=== PATIENT | female | born 1960 | race Caucasian/White ===

== ENCOUNTER 2017-03-18 17:28 | Emergency (ER) | payer OTHER ==
[~2017-03-18] VITALS: Ht 157.5 cm; Wt 58.5 kg
[~2017-03-18 17:28] MED LIST: ABCC1C PO; ACET500T98 PO; AUG875 PO; CEPH-443 PO; DOCU240C55 PO; FAMO-96 PO; FLUT9.9S NASAL; HYDR-906 PO; IBUP200C PO; MECL12.574 PO; MUPI22OI2 TOP; NAPR-260 PO; OMEP20CA16 PO; TRAM50TA2 PO; UDROBDM PO
[2017-03-18 17:31] VITALS: Ht 157.5 cm; Wt 58.5 kg
--- NOTE | 2017-03-18 18:15 | ERD ---
ER Documentation Chief Complaint Date/Time DATE: 03/18/17 TIME: 18:08 Chief Complaint right eye pain since 03/03/17 HPI This pleasant 56-year-old female presents to emergency department for complaint of pain behind right eye radiating down neck and behind the ear. History of bilateral infection x 2 weeks pt treated shirt hemmer with with Ciloxan gtt, erythromycin oint, tromodol gtts and oral keflex. pt has a lid scrub, states that she is taking all medication as prescribed w/o improvement of symptoms . Patient denies change in vision or unilateral weakness, denies change in behavior or alteration in thinking. Patient denies speech difficulties, difficulties with chewing or swallowing. ROS All systems reviewed and are negative except as per history of present illness. Medications Home Meds Active Scripts Gabapentin* (Neurontin*) 100 Mg Capsule, 100 MG PO TID, #90 CAP Prov:BRYANT,JAYLEN 03/18/17 Famotidine* (Pepcid*) 20 Mg Tablet, 20 MG PO BID for 10 Days, TAB Prov:ZION PILLAI PA-C 07/05/16 Naproxen* (Naprosyn*) 500 Mg Tablet, 500 MG PO BID Y for PAIN AND/OR INFLAMMATION, #30 TAB Prov:ZION PILLAI PA-C 07/05/16 Meclizine Hcl* (Antivert*) 12.5 Mg Tab, 12.5 MG PO Q6H Y for DIZZINESS, #20 TAB Prov:ZION PILLAIC 07/05/16 Hydrocodone/Acetaminophen ([place] 5-325 Tablet) 1 Each Tablet, 1 TAB PO Q6H Y for PAIN, #10 TAB Prov:ZION PILLAIC 07/05/16 Cephalexin* (Keflex*) 500 Mg Capsule, 500 MG PO QID for 7 Days, CAP Prov:LILIYAANA GOVEA 12/01/15 Mupirocin* (Bactroban*) 2% -22 Gram Oint...g., 1 APPLIC TOP BID for 7 Days, EA Prov:ANA LOVELL 12/01/15 Guaifenesin-Dextromethorphan* (Robitussin* DM) 100MG/10MG/5ML Syrup, 10 ML PO Q6H Y for COUGH, #240 ML 0 Refills Prov:BING PICKERING PA-C 08/18/15 Fluticasone Propionate (Flonase Allergy Relief) 9.9 Ml [place].susp, 1 SPRAY NASAL BID, #1 BOTTLE 0 Refills TO EACH NOSTRIL Prov:BING PICKERING PA-C 08/18/15 Ibuprofen* (Ibuprofen*) 200 Mg Capsule, 200 MG PO Q6, #30 CAP 0 Refills Prov:BING PICKERING PA-C 08/18/15 Acetaminophen (Tylenol) 500 Mg Tab, 500 MG PO Q6, #30 TAB 0 Refills Prov:BING PICKERING PA-C 08/18/15 Hctxikiptjmzj-Xmvqqychoe-Khtgdgsy-Codeine* (Fioricet w/Codeine*) [id number] -30MG Cap, 1 CAP PO Q4H Y for PAIN LEVEL 1-5, #20 CAP Prov:KRISS CHAUDHARI PA-C 06/01/15 Tramadol HCl (Tramadol HCl) 50 Mg Tab, 50 MG PO Q4 Y for PAIN, #10 TAB Prov:KRISS CHAUDHARI PA-C 01/23/15 Amoxicillin-Clavulanate K* (Augmentin*) 875 Mg Tab, 875 MG PO BID for 7 Days, TAB Prov:KRISS CHAUDHARI PA-C 01/23/15 Reported Medications Docusate Calcium* (Stool Softener*) 240 Mg Capsule, 240 MG PO DAILY, CAP 11/19/14 Omeprazole* (Omeprazole*) 20 Mg Capsule.dr, 20 MG PO AC BREAKFAST, CAP 11/19/14 Allergies Allergies: Coded Allergies: No Known Allergy (Unverified , 01/23/15) PMhx/Soc History of Surgery: Yes (BREAST AUGMENTATION) Anesthesia Reaction: No Hx Neurological Disorder: No Hx Respiratory Disorders: No Hx Cardiac Disorders: No Hx Psychiatric Problems: No Hx Miscellaneous Medical Probl: No Hx Alcohol Use: No Hx Substance Use: No Hx Tobacco Use: No Smoking Status: Never smoker Physical Exam Vitals Vital Signs Date Time Temp Pulse Resp B/P Pulse Ox O2 Delivery O2 Flow Rate FiO2 03/18/17 17:31 98.4 78 20 134/77 99 Vitals stable, triage notes reviewed Physical Exam Const: Well-nourished, well-appearing, well-hydrated no acute distress Head: Atraumatic Eyes: Normal Conjunctiva, clear, without injection, or edema, positive EOMI, no nystagmus, PERRLA ENT: Normal External Ears, Nose and Mouth. Neck: Full range of motion.. Resp: Respirations even and unlabored, no respiratory Cardio: Abd: Skin: Ext: Neur: Awake and alert Psych: Normal Mood and Affect Results 24 hrs Current Medications Medications (Trade) Dose Ordered Sig/Macario Route PRN Reason Start Time Stop Time Status Last Admin Dose Admin Gabapentin (Neurontin) 200 mg ONCE ONCE PO 03/18/17 21:00 03/18/17 21:01 Procedures/MDM PROCEDURE: CT Brain without. CLINICAL INDICATION: Right eye pain and infection. TECHNIQUE: A CT of the brain was performed on multidetector high-resolution CT scanner utilizing axial sections from the skull base through the vertex without contrast. The scan was reviewed in soft tissue brain and high frequency resolution bone algorithm windows. Images were reviewed on a high- resolution PACS workstation. One or more the following does reduction techniques were utilized: Automated exposure control, adjustment of the mA/ or kV according to patient's size, or use of iterative reconstruction technique. The exam CTDI = 44 point and mGy and the DLP = 720.23 mGy-cm. COMPARISON: None available. FINDINGS: The ventricles and sulci are age-appropriate. There is no intracranial hemorrhage, mass effect or midline shift. No abnormal intra-axial or extra- axial fluid collections are seen. The vee/white matter differentiation is preserved. No acute skull abnormality is noted. The visualized paranasal sinuses are essentially clear. IMPRESSION: 1. No acute intracranial hemorrhage, transcortical infarction or mass effect. If clinical concern for ocular infection persists consider orbit MRI with contrast. Electronically viewed and signed by .Stacia Cowart MD, MD on 03/18/2017 19: 03 This 56-year-old female presents to emergency department for evaluation of pain behind right eye radiating to the side of her face and down her neck. Patient has been treated and seen by ophthalmology and is undergoing a extensive antibiotic regime at this time, patient is on siloxane, erythromycin, tramadol ophthalmic solution and ointment, oral Keflex and using a lid scrub for a eye infection which she does not know the name. Patient reports that she has been going back to ophthalmology every 2 weeks and has an appointment next week. Patient is here because she has not had this type of pain before. Pain is reproducible to tap suggestive of nerve pain, CAT scan of head will be obtained to rule out any mass. CAT scan is finding as outlined above no acute intracranial hemorrhage, transcortical infarct or mass-effect. Patient is treated in emergency department with 200 mg of Neurontin. Will be discharged home on 150 mg Neurontin 3 times daily follow-up with primary care physician and ophthalmology as planned. Return to emergency department for worsening of pain or if pain fails to improve as expected. Return to emergency department for change in vision, nausea or vomiting. I feel the patient is stable for discharge at this time with outpatient management as discussed above. I have discussed results, examination findings, the treatment plan with the patient and family present prior to discharge. Indications for emergent reevaluation, side effects of medication were also discussed. All questions were answered. Patient verbalizes understanding and agrees with plan of care. This case was discussed with supervising physician Departure Diagnosis: Primary Impression: Pain in eye Laterality: right Qualified Code: H57.11 - Pain in eye, right Condition: Good Patient Instructions: Understanding Red Eye: Causes Additional Instructions: Thank you for for coming to [facility] for your care today. Please ask your nurse or provider if you have questions about your care today and do not leave until all your questions have been answered. Please use any medications given as directed and follow-up with your doctor (or the doctor you were referred to) in the next 2-3 days. If you do not have a primary care doctor you may follow up at the [facility] (listed below). You may also use motrin and tylenol as needed for fever and/or pain unless instructed otherwise by your provider or nurse. Indications for more urgent follow-up have been discussed, but you may return to the Emergency Department at ANY time for any worrisome or worsening symptoms. If you have abdominal pain, please know that no test or exam you received is perfect and you should follow up within 8 hours for continued pain. If you had any imaging studies today, such as an X-Ray or CT Scan, these studies will be reviewed later by a radiologist. You will be called if there are important findings that were not identified today, so make sure the contact information you provided at registration is correct. If you received any narcotic pain control medicine today, such as Vicodin, Morphine or Dilaudid, your coordination and judgment may be affected for a number of hours. Please do not drive or operate heavy machinery, and you may want someone to assist you at home. If you were given a prescription for narcotic medication, be aware that it is very addictive- use sparingly and only if necessary. JAYLEN HURTADO Mar 18, 2017 18:15
--- NOTE | 2017-03-18 19:03 | RADRPT ---
PROCEDURE: CT Brain without. CLINICAL INDICATION: Right eye pain and infection. TECHNIQUE: A CT of the brain was performed on multidetector high-resolution CT scanner utilizing a xial sections from the skull base through the vertex without contrast. The scan was reviewed in sof t tissue brain and high frequency resolution bone algorithm windows. Images were reviewed on a high -resolution PACS workstation. One or more the following does reduction techniques were utilized: Aut omated exposure control, adjustment of the mA/ or kV according to patient's size, or use of iterativ e reconstruction technique. The exam CTDI = 44 point and mGy and the DLP = 720.23 mGy-cm. COMPARISON: None available. FINDINGS: The ventricles and sulci are age-appropriate. There is no intracranial hemorrhage, mass effect or mi dline shift. No abnormal intra-axial or extra-axial fluid collections are seen. The vee/white yesi er differentiation is preserved. No acute skull abnormality is noted. The visualized paranasal sinus es are essentially clear. IMPRESSION: 1. No acute intracranial hemorrhage, transcortical infarction or mass effect. If clinical concern f or ocular infection persists consider orbit MRI with contrast. RPTAT: HH .Stacia Cowart MD, MD Date Time Electronically viewed and signed by .Stacia Cowart MD, MD on 03/18/2017 19:03 .N/
[2017-03-18] MEDS ORDERED: GABA100C PO (20:48)
[2017-03-18] MEDS ORDERED: GABAPENTIN 100 MG CAP PO ONE (21:00)
[2017-03-18 21:50] VITALS: BP 139/68; PULSE 77; RESP 20; TEMP 98.3
== END 2017-03-18 21:52 | disposition home or self-care (01) ==
LOC: FTE 17:28
DX: H57.11 Ocular pain, right eye (principal); R51 Headache
CPT/HCPCS: 70450; Z7502; Z7610

== ENCOUNTER 2017-04-14 15:03 | Inpatient (IN) | payer OTHER ==
[~2017-04-14] VITALS: Ht 154.9 cm; Wt 61.0 kg
[~2017-04-14 15:03] MED LIST changes: +GABA100C PO
[2017-04-14] MEDS ORDERED: KETOROLAC 15 MG INJ IV STA (16:32)
[2017-04-14 16:56] LABS: BASOPHILS % 0.5 % (0.0-2.0); EOSINOPHILS % 0.5 % (0.0-7.0); HEMATOCRIT 37.7 % (37.0-47.0); HEMOGLOBIN 12.3 g/dl (12.0-16.0); LYMPHOCYTES % 50.3 % (15.0-51.0); MEAN CORPUSCULAR HEMOGLOBIN 28.4 pg (29.0-33.0); MEAN CORPUSCULAR HGB CONC 32.6 g/dl (32.0-37.0); MEAN CORPUSCULAR VOLUME 87.1 fl (82.0-101.0); MEAN PLATELET VOLUME 9.5 fl (7.4-10.4); MONOCYTE # 0.3 10^3/ul (0.3-0.9); NEUTROPHILS % 43.5 % (39.0-77.0); PLATELET COUNT 312 10^3/UL (140-415); RED BLOOD COUNT 4.33 10^6/ul (4.20-5.40); RED CELL DISTRIBUTION WIDTH 12.8 % (11.5-14.5)
[2017-04-14] MEDS ORDERED: PROCHLORPERAZINE 10 MG INJ IV ONE (17:00)
[2017-04-14] MEDS ORDERED: DIPHENHYDRAMINE 50 MG INJ IV ONE (17:00)
[2017-04-14 17:23] LABS: ALBUMIN 4.8 g/dl (3.3-4.9); ALBUMIN/GLOBULIN RATIO 0.87; BILIRUBIN,INDIRECT 0.2 mg/dl (0-1.1); BILIRUBIN,TOTAL 0.2 mg/dl (0.2-1.3); C-REACTIVE PROTEIN 0.5 mg/dl (0.0-0.9); CALCIUM 9.9 mg/dl (8.4-10.2); CREATININE 0.72 mg/dl (0.44-1.00); POTASSIUM 4.1 mmol/L (3.5-5.1); TOTAL PROTEIN 10.3 g/dl (6.1-8.1)
--- NOTE | 2017-04-14 18:09 | ERA ---
ER Documentation Chief Complaint Date/Time DATE: 04/14/17 TIME: 18:04 Chief Complaint sent by clinic for suspected giant cell arteritis HPI This is a 56-year-old female with a past medical history of hypothyroidism, chronic gastritis, glaucoma who is presenting with a severe right-sided 10 out of 10 sharp pulsating headache for 2-3 weeks. She was evaluated as an outpatient previously and her ESR was found to be at 130. The patient has seen an cost analyst who reportedly was concerned about giant cell arteritis but advised against prednisone secondary to elevated intraocular pressure. She does have a rheumatology appointment scheduled for the end of April, but her symptoms have persisted and she came here for further evaluation. The patient endorses blurry vision and photophobia to the right eye. She has no nausea or vomiting. ROS All systems reviewed and are negative except as per history of present illness. Medications Home Meds Active Scripts Gabapentin* (Neurontin*) 100 Mg Capsule, 100 MG PO TID, #90 CAP Prov:BRYANT,JAYLEN 03/18/17 Reported Medications Neomycin-Polymyxn B-Gramicidin (Rjuxvkco-Gksb-Zzmi Eye Drop) 10 Ml Drops, 1 DROP BOTH EYES QHS, EA 04/14/17 Ketorolac Tromethamine Oph (Ketorolac Tromethamine Oph) 0.5%-5 Ml Opht Drops, 1 DROP BOTH EYES QID, EA 04/14/17 Ciprofloxacin Opht* (Ciloxan*) 0.3%-3.5 Opht Oint, 1 APPLIC BOTH EYES QID, EA 04/14/17 Ofloxacin* (Ocuflox*) 0.3%-5 Ml Ophth Drops, 1 DROP BOTH EYES QID, BOTTLE 04/14/17 Erythromycin (Erythromycin Opth) 3.5 Gm Oint..gm., 1 APPLIC BOTH EYES BID, #1 TUB 04/14/17 Tramadol HCl/Acetaminophen (Ultracet Tablet) 1 Each Tablet, 1 EACH PO BID, TAB TAKE 37.5-325 MG BID 04/14/17 Discontinued Reported Medications Docusate Calcium* (Stool Softener*) 240 Mg Capsule, 240 MG PO DAILY, CAP 11/19/14 Omeprazole* (Omeprazole*) 20 Mg Capsule.dr, 20 MG PO AC BREAKFAST, CAP 11/19/14 Discontinued Scripts Famotidine* (Pepcid*) 20 Mg Tablet, 20 MG PO BID for 10 Days, TAB Prov:ZION PILLAI PA-C 07/05/16 Naproxen* (Naprosyn*) 500 Mg Tablet, 500 MG PO BID Y for PAIN AND/OR INFLAMMATION, #30 TAB Prov:ZION PILLAI PA-C 07/05/16 Meclizine Hcl* (Antivert*) 12.5 Mg Tab, 12.5 MG PO Q6H Y for DIZZINESS, #20 TAB Prov:ZION PILLAI PA-C 07/05/16 Hydrocodone/Acetaminophen ([place] 5-325 Tablet) 1 Each Tablet, 1 TAB PO Q6H Y for PAIN, #10 TAB Prov:ZION PILLAI PA-C 07/05/16 Cephalexin* (Keflex*) 500 Mg Capsule, 500 MG PO QID for 7 Days, CAP Prov:ANA LOVELL 12/01/15 Mupirocin* (Bactroban*) 2% -22 Gram Oint...g., 1 APPLIC TOP BID for 7 Days, EA Prov:ANA LOVELL 12/01/15 Guaifenesin-Dextromethorphan* (Robitussin* DM) 100MG/10MG/5ML Syrup, 10 ML PO Q6H Y for COUGH, #240 ML 0 Refills Prov:BING PICKERING PA-C 08/18/15 Fluticasone Propionate (Flonase Allergy Relief) 9.9 Ml [place].susp, 1 SPRAY NASAL BID, #1 BOTTLE 0 Refills TO EACH NOSTRIL Prov:BING PICKERING PA-C 08/18/15 Ibuprofen* (Ibuprofen*) 200 Mg Capsule, 200 MG PO Q6, #30 CAP 0 Refills Prov:BING PICKERING PA-C 08/18/15 Acetaminophen (Tylenol) 500 Mg Tab, 500 MG PO Q6, #30 TAB 0 Refills Prov:BING PICKERING PA-C 08/18/15 Mvznrmeadzmwx-Lxuopmtsym-Yjkcrzrl-Codeine* (Fioricet w/Codeine*) [id number] -30MG Cap, 1 CAP PO Q4H Y for PAIN LEVEL 1-5, #20 CAP Prov:KRISS CHAUDHARI PA-C 10/16/15 Tramadol HCl (Tramadol HCl) 50 Mg Tab, 50 MG PO Q4 Y for PAIN, #10 TAB Prov:KRISS CHAUDHARI PA-C 01/23/15 Amoxicillin-Clavulanate K* (Augmentin*) 875 Mg Tab, 875 MG PO BID for 7 Days, TAB Prov:KRISS CHAUDHARI PA-C 01/23/15 Allergies Allergies: Coded Allergies: No Known Allergy (Unverified , 04/14/17) PMhx/Soc History of Surgery: Yes (BREAST AUGMENTATION) Anesthesia Reaction: No Hx Neurological Disorder: No Hx Respiratory Disorders: No Hx Cardiac Disorders: No Hx Psychiatric Problems: No Hx Miscellaneous Medical Probl: Yes (hypothyroidism, glaucoma, gastritis) Hx Alcohol Use: No Hx Substance Use: No Hx Tobacco Use: No Smoking Status: Never smoker FmHx Family History: No diabetes Physical Exam Vitals Vital Signs Date Time Temp Pulse Resp B/P Pulse Ox O2 Delivery O2 Flow Rate FiO2 04/14/17 15:10 98.4 72 20 125/78 99 Physical Exam Const: NAD Head: Atraumatic, pulsatility to right temporal artery Eyes: Normal Conjunctiva, Visual Acuity R 20:50, L 20:70, B 20:40 ENT: Normal External Ears, Nose and Mouth. Neck: Full range of motion. ~ No meningismus. Resp: Clear to auscultation bilaterally Cardio: Regular rate and rhythm, no murmurs Abd: Soft, non tender, non distended. Normal bowel sounds Skin: No petechiae or rashes Back: No midline or flank tenderness Ext: No cyanosis, or edema Neur: Awake and alert Psych: Normal Mood and Affect Result Diagram: 04/14/17 1645 04/14/17 1645 Results 24 hrs Laboratory Tests Test 04/14/17 16:45 White Blood Count 6.010^3/ul Red Blood Count 4.3310^6/ul Hemoglobin 12.3g/dl Hematocrit 37.7% Mean Corpuscular Volume 87.1fl Mean Corpuscular Hemoglobin 28.4pg Mean Corpuscular Hemoglobin Concent 32.6g/dl Red Cell Distribution Width 12.8% Platelet Count 09077^3/UL Mean Platelet Volume 9.5fl Neutrophils % 43.5% Lymphocytes % 50.3% Monocytes % 5.0% Eosinophils % 0.5% Basophils % 0.5% Nucleated Red Blood Cells % 0.0/100WBC Neutrophils # (Manual) 2.610^3/ul Lymphocytes # 3.010^3/ul Monocytes # 0.310^3/ul Eosinophils # 0.010^3/ul Basophils # 0.010^3/ul Nucleated Red Blood Cells # 0.010^3/ul Erythrocyte Sedimentation Rate 115mm/Hr Sodium Level 147mmol/L Potassium Level 4.1mmol/L Chloride Level 102mmol/L Carbon Dioxide Level 30mmol/L Anion Gap 19 Blood Urea Nitrogen 17mg/dl Creatinine 0.72mg/dl Glucose Level 91mg/dl Calcium Level 9.9mg/dl Total Bilirubin 0.2mg/dl Direct Bilirubin 0.00mg/dl Indirect Bilirubin 0.2mg/dl Aspartate Amino Transf (AST/SGOT) 30IU/L Alanine Aminotransferase (ALT/SGPT) 25IU/L Alkaline Phosphatase 98IU/L C-Reactive Protein 0.5mg/dl Total Protein 10.3g/dl Albumin 4.8g/dl Globulin 5.50g/dl Albumin/Globulin Ratio 0.87 Current Medications Medications (Trade) Dose Ordered Sig/Macario Route PRN Reason Start Time Stop Time Status Last Admin Dose Admin Ketorolac Tromethamine (Toradol) 15 mg ONCE STAT IV 04/14/17 16:32 04/14/17 16:37 DC 04/14/17 16:55 Diphenhydramine HCl (Benadryl) 25 mg ONCE ONCE IV 04/14/17 17:00 04/14/17 17:01 DC 04/14/17 16:56 Prochlorperazine (Compazine Inj) 10 mg ONCE ONCE IV 04/14/17 17:00 04/14/17 17:01 DC 04/14/17 17:19 Ondansetron HCl (Zofran Inj) 4 mg BRIDGE ORDER PRN IV NAUSEA AND/OR VOMITING 04/14/17 21:00 04/15/17 20:59 Acetaminophen (Tylenol Tab) 650 mg ER BRIDGE PRN PO MILD PAIN/FEVER 04/14/17 21:00 04/15/17 20:59 Procedures/MDM The patient was sent to the ER to evaluate for Temporal Arteritis. Her CBC and CMP were unremarkable. Her ESR was elevated at 115. Her CRP was normal. She was given a migraine cocktail with improvement of her pain but not resolution. Her protracted history with resolution in one eye after laser surgery for glaucoma make me less suspicious for temporal arteritis. However, the ESR is concerning. She will be admitted to the ER for further Evaluation and management. A CT was performed that likewise did not reveal any emergent etiology. The radiologist read the scan as follows: FINDINGS: The ventricles and sulci are age-appropriate. There is no intracranial hemorrhage, mass effect or midline shift. No abnormal intra-axial or extra-axial fluid collections are seen. The vee/white matter differentiation is preserved. No acute skull abnormality is noted. The visualized paranasal sinuses are essentially clear. IMPRESSION: No acute intracranial hemorrhage, transcortical infarction or mass effect. If clinical concern for ocular infection persists consider orbit MRI with contrast. .Stacia Cowart MD, MD Date Time Electronically viewed and signed by .Stacia Cowart MD, MD on 03/18/2017 19: 03 I don't not have concern for ocular infection. Case was discussed with Dr. Hardwick at 1955 on 04/14/2017 Departure Diagnosis: Primary Impression: BELLA (headache) Additional Impressions: Blurred vision, right eye ESR raised Condition: JENNA Nash MD Apr 14, 2017 18:09
[2017-04-14] MEDS ORDERED: TRAM1TAB51 PO (18:50)
[2017-04-14] MEDS ORDERED: ERYT1OIN6 BOTH EYES (18:52)
[2017-04-14] MEDS ORDERED: CPR3OO3.5 BOTH EYES (18:54)
[2017-04-14] MEDS ORDERED: OFLO5DRO46 BOTH EYES (18:54)
[2017-04-14] MEDS ORDERED: KETO5DRO21 BOTH EYES (18:55)
[2017-04-14] MEDS ORDERED: [UNRECOGNIZED DRUG - CODE] BOTH EYES (18:58)
[2017-04-14 20:18] VITALS: BP 146/78; RESP 18
[2017-04-14] MEDS ORDERED: ONDANSETRON 4 MG INJ IV PRN (21:00)
[2017-04-14] MEDS ORDERED: ACETAMINOPHEN 325 MG TAB PO PRN (21:00)
[2017-04-14 21:12] VITALS: PULSE 78; TEMP 98.4
[2017-04-14 22:00] VITALS: Ht 154.9 cm; Wt 61.0 kg
[2017-04-14] MEDS ORDERED: morphine 4 MG/ML VIAL IV PRN (22:00)
[2017-04-14] MEDS ORDERED: ZOLPIDEM 5 MG TAB PO PRN (22:00)
[2017-04-15 02:10] VITALS: BP 112/63; RESP 19
[2017-04-15 05:30] LABS: BASOPHILS % 0.3 % (0.0-2.0); EOSINOPHILS # 0.1 10^3/ul (0.0-0.5); EOSINOPHILS % 1.4 % (0.0-7.0); HEMOGLOBIN 11.1 g/dl (12.0-16.0); LYMPHOCYTES # 3.4 10^3/ul (0.8-2.9); LYMPHOCYTES % 51.7 % (15.0-51.0); MEAN CORPUSCULAR HEMOGLOBIN 27.7 pg (29.0-33.0); MEAN CORPUSCULAR HGB CONC 31.7 g/dl (32.0-37.0); MEAN CORPUSCULAR VOLUME 87.3 fl (82.0-101.0); MEAN PLATELET VOLUME 10.2 fl (7.4-10.4); MONOCYTE # 0.4 10^3/ul (0.3-0.9); MONOCYTES % 5.8 % (0.0-11.0); NEUTROPHILS % 40.6 % (39.0-77.0); PLATELET COUNT 274 10^3/UL (140-415); RED BLOOD COUNT 4.01 10^6/ul (4.20-5.40); RED CELL DISTRIBUTION WIDTH 12.9 % (11.5-14.5); WHITE BLOOD COUNT 6.6 10^3/ul (4.8-10.8)
[2017-04-15 06:02] LABS: CALCIUM 9.2 mg/dl (8.4-10.2); CREATININE 0.76 mg/dl (0.44-1.00); MAGNESIUM 2.2 mg/dl (1.7-2.5); POTASSIUM 4.1 mmol/L (3.5-5.1)
[2017-04-15] MEDS: ACETAMINOPHEN 325 MG TAB PO PRN ×2 (07:33→14:35)
[2017-04-15] MEDS: HEPARIN 5,000 UNIT/0.5 ML VIAL SC SCH ×2 (08:17→21:10)
[2017-04-15 08:24] VITALS: BP 113/65; RESP 18
[2017-04-15] MEDS ORDERED: KETOROLAC TROMETHAMINE OPH BOTH EYES SCH (09:30)
--- NOTE | 2017-04-15 09:32 | HP ---
Date/Time of Note Date/Time of Note DATE: 04/15/17 TIME: 09:20 Assessment/Plan VTE Prophylaxis VTE Prophylaxis Intervention: LMWH Lines/Catheters IV [facility] Saline Lock Assessment/Plan Assessment/Plan 1. Headache and right eye pain -Given the persistent nature of her symptoms as well as elevated ESR, temporal arteritis should be high on the differential. Will find out how we go about obtaining a temporal artery biopsy. As noted in the HPI, patient has been evaluated by ophthalmology who recommended against steroid because of elevated intraocular pressure. -will provide pain medication as needed -will place a rheumatology consult 2. Hypothyroidism -Continue Synthroid 3. History of gastritis -PPI HPI/ROS Admit Date/Time Admit Date/Time Apr 14, 2017 at 20:43 Hx of Present Illness This is a 56-year-old female with a history of gastritis, hypothyroidism who presented to the emergency department complaining of a headache. Pain started about 6 weeks ago. Headache is mainly right sided with associated visual disturbance and photophobia. She also describes pain behind her right eye. About 5 or 6 weeks ago, she saw an mill beam fitter and has been treated with ophthalmic antibiotics for eye infections. Her symptoms however persisted. She was evaluated here in our ER at the beginning of this month. At that time CT of the head was negative for any acute processes. She denied fever, neck stiffness, facial droop, discharge from her eyes. She had an outpatient workup which showed an elevated ESR, which caused concern for temporal arteritis. Patient does have history of glaucoma and because of that ophthalmology recommended again is a steroid because of elevated intraocular pressure. She is scheduled to see a food and beverage service manager sometime next month. When she presented to the ER today, vitals were stable. ESR is 115. Except a sodium of 147, CBC and CMP were within acceptable range. . PMH/Family/Social Past Medical History Medical History: hypothyroid, other (Gastritis) Social History Alcohol Use: none Smoking Status: Never smoker Drug Use: none Exam/Review of Systems Vital Signs Vitals Vital Signs Date Time Temp Pulse Resp B/P Pulse Ox O2 Delivery O2 Flow Rate FiO2 04/15/17 08:24 98.0 67 18 113/65 98 Intake and Output 04/14/17 04/14/17 04/15/17 15:00 23:00 07:00 Intake Total 450 ml Balance 450 ml Exam Constitutional: other (Slightly uncomfortable due to pain) Head: atraumatic, normocephalic Eyes: EOMI, PERRL Respiratory: clear to auscultation, normal air movement Cardiovascular: nl pulses, regular rate and rhythm Gastrointestinal: non-tender, soft Extremities: normal pulses Labs Result Diagram: 04/15/17 0500 04/15/17 0500 Medications Medications Current Medications Morphine Sulfate (morphine) 3 mg Q4H PRN IV PAIN; Start 04/14/17 at 22:00 Zolpidem Tartrate (Ambien) 10 mg HS PRN PO INSOMNIA; Start 04/14/17 at 22:00 Heparin Sodium (Porcine) (Heparin (5000 Units/0.5 ml)) 5,000 unit BID SC Last administered on 04/15/17 08:17; Admin Dose 5,000 UNIT; Start 04/15/17 at 09:00 Acetaminophen (Tylenol Tab) 650 mg Q6H PRN PO PAIN AND OR ELEVATED TEMP Last administered on 04/15/17 07:33; Admin Dose 650 MG; Start 04/15/17 at 07:30 CHRISTIANNE CAMPBELL MD Apr 15, 2017 09:31 CHRISTIANNE CAMPBELL MD Apr 15, 2017 09:31
[2017-04-15] MEDS: ERYTHROMYCIN 1 GM OPH OINT BOTH EYES SCH ×2 (11:48→21:03)
[2017-04-15] MEDS: GABAPENTIN 100 MG CAP PO SCH ×2 (12:40→21:03)
[2017-04-15] MEDS ORDERED: CIPROFLOXACIN 0.3% 3.5 GM OPH OINT BOTH EYES SCH (13:00)
[2017-04-15] MEDS: KETOROLAC 0.5% BOTH EYES SCH ×3 (13:48→21:03)
[2017-04-15] MEDS: OPTHALMIC BOTH EYES SCH ×6 (13:48→21:03)
[2017-04-15] MEDS: OFLOXACIN 0.3% BOTH EYES SCH ×3 (14:35→21:03)
--- NOTE | 2017-04-15 14:44 | CONS ---
DATE OF ADMISSION: 04/14/2017 DATE OF CONSULTATION: 04/15/2017 RHEUMATOLOGY CONSULTATION REASON FOR CONSULTATION: Concern for temporal arteritis secondary to elevated ESR. HISTORY OF PRESENT ILLNESS: The patient is a 56-year-old female with a history of gastritis and hypothyroidism who came into the emergency department after being referred here by her primary care doctor with complaints of a headache. Now, per patient, she has actually had a headache for well over a year on and off, however, in the last 6-months it became worse, and it is a shooting pain that starts at her right temporal area and shoots posteriorly to her back. Occasionally, she will get it in the left temporal area. She says that she has had eye issues on and off at least for the past year. It started with tearing in her right eye, which she went to see an roving court reporter for, at first they thought it was an infection and they gave her antibiotics. Then they noticed that she actually has elevated pressures in both eyes. She was diagnosed with glaucoma and she had laser treatment in the left, she is scheduled for laser treatment in the right in the near future. She complained about the headaches to her roving court reporter and he felt that they were secondary to her glaucoma. She was also evaluated in the emergency room at the beginning of this month. At that time, a CT of the head was negative for any acute processes. She denies any fevers, neck stiffness, facial droop. She does have some eye discharge which is just clear increased tear production from her right eye. She denies any jaw claudication or any other vision changes, any double vision, there are really no vision changes other than just the tearing. No double vision, no blurry vision. As an outpatient, she had a workup that showed an elevated ESR. Currently, the ESR here is 115, which is definitely elevated. Per report, ophthalmology is concerned about steroids and does not want the patient to be placed on steroids because of the elevated intraocular pressure. She has a scheduled appointment with her language assistant, it appears, next month. Currently she denies chest pain, shortness of breath, nausea and vomiting, cough, diarrhea, constipation. She denies any arthritis, myalgias, no rash, no photosensitivity, no oral or nasal or vaginal ulcers. She denies Raynaud's phenomenon. PAST MEDICAL HISTORY: Hypothyroid and possible gastritis. SOCIAL HISTORY: No alcohol, never smoked, no drug use. FAMILY HISTORY: Father with prostate cancer. Mother with uterine cancer. No known autoimmune history. PAST SURGICAL HISTORY: Status post breast implants. MEDICATION: 1. She is on morphine p.r.n. 2. Ambien p.r.n. 3. Heparin subcu. 4. Tylenol p.r.n. PHYSICAL EXAMINATION: GENERAL APPEARANCE: Alert and oriented in no acute distress. Pleasant female. HEENT: Head normocephalic and atraumatic. Extraocular movements intact. Oropharynx is clear. Very slight tenderness to possible palpation in the right temporal region. LUNGS: Clear to auscultation bilaterally. HEART: S1 and S2. Regular rate and rhythm. ABDOMEN: Soft abdomen, nontender and nondistended, bowel sounds present. EXTREMITIES: Normal pulses, no clubbing, cyanosis or edema. MUSCULOSKELETAL: No synovitis, no joint effusion, no joint warmth. SKIN: No rashes. NEUROLOGIC: Cranial nerves 2-12 grossly intact. LABORATORY VALUES: Currently include white count 6.6, hemoglobin 11.1, hematocrit 35, platelet count 274. ESR, as I stated, is 115. Chemistry, sodium 147, potassium 4.1, chloride 104, bicarb 29, BUN 21, creatinine 0.76, alkaline phos 84. C-reactive protein is 0.5. AST 30, ALT 25. IMPRESSION AND PLAN: We have a 56-year-old female with history of hypothyroidism presenting with what appears to be rather chronic headaches for at least the past year and known glaucoma undergoing treatment with roving court reporter and found to have, amidst all of this, an elevated ESR. I personally feel that she is at low likelihood to have temporal arteritis given her presentation and her age. Her chronicity of symptoms, more than anything, goes against it. However, given the elevated ESR and the fact that we do not have any other explanation for this at this time, I would go ahead and recommend a temporal artery biopsy of the right side at this point in time. I will hold off on starting prednisone or corticosteroids as per the wishes of her roving court reporter to not make her glaucoma worse as I feel that she is in no acute danger at this point in time. Should this change, her headaches worse, visual changes worsen, we may re- evaluate the situation. Also it should be noted that even with a temporal artery biopsy, if it is negative it does not necessarily guarantee that she does not have temporal arteritis as this disease can have skip lesions and we might be unlucky enough to get a biopsy of an area that is not involved. However, even knowing this, at this point I still do not want to start the steroids because I think we would do more harm to her eyes with her glaucoma than help them, given the low probability of temporal arteritis. I would like to thank the primary care doctors for having me participate in this patient's care. Please do not hesitate to call with further questions or concerns. Dictated By: Rachid Paredes MD /carine/jo-ann /Document#: [id number]
[2017-04-15 14:47] VITALS: BP 115/67; RESP 18
--- NOTE | 2017-04-15 16:52 | PN ---
Date/Time of Note Date/Time of Note DATE: 04/15/17 TIME: 16:49 Assessment/Plan VTE Prophylaxis VTE Prophylaxis Intervention: heparin Lines/Catheters IV Catheter Type (from Nrs): Saline Lock Assessment/Plan Chief Complaint/Hosp Course Subjective: Events noted. Appreciate application support consultant assistance Objective: Vital signs stable no fever PE No pallor adenopathy. Not much temporal tenderness. eomi. Regular Clear Benign No edema Assessment / plan 1. Headache/ vision changes. Stable, consider temporal artery biopsy. Hold steroids due to glaucoma at the assistance of her gambling broker. 2. Chronic glaucoma. Follow-up with ophthalmology as soon as possible. 3. Chronic hypothyroidism 4. Anemia Problems: Exam/Review of Systems Vital Signs Vitals Vital Signs Date Time Temp Pulse Resp B/P Pulse Ox O2 Delivery O2 Flow Rate FiO2 04/15/17 14:47 98.0 68 18 115/67 97 Intake and Output 04/14/17 04/14/17 04/15/17 15:00 23:00 07:00 Intake Total 450 ml Balance 450 ml Results Result Diagram: 04/15/17 0500 04/15/17 0500 Results 24 hrs Laboratory Tests Test 04/15/17 05:00 White Blood Count 6.6 Red Blood Count 4.01 L Hemoglobin 11.1 L Hematocrit 35.0 L Mean Corpuscular Volume 87.3 Mean Corpuscular Hemoglobin 27.7 L Mean Corpuscular Hemoglobin Concent 31.7 L Red Cell Distribution Width 12.9 Platelet Count 274 Mean Platelet Volume 10.2 Neutrophils % 40.6 Lymphocytes % 51.7 H Monocytes % 5.8 Eosinophils % 1.4 Basophils % 0.3 Nucleated Red Blood Cells % 0.0 Neutrophils # (Manual) 2.7 Lymphocytes # 3.4 H Monocytes # 0.4 Eosinophils # 0.1 Basophils # 0.0 Nucleated Red Blood Cells # 0.0 Sodium Level 147 H Potassium Level 4.1 Chloride Level 104 Carbon Dioxide Level 29 Anion Gap 18 H Blood Urea Nitrogen 21 H Creatinine 0.76 Glucose Level 94 Calcium Level 9.2 Magnesium Level 2.2 Alkaline Phosphatase 84 Medications Medications Current Medications Morphine Sulfate (morphine) 3 mg Q4H PRN IV PAIN; Start 04/14/17 at 22:00 Zolpidem Tartrate (Ambien) 10 mg HS PRN PO INSOMNIA; Start 04/14/17 at 22:00 Heparin Sodium (Porcine) (Heparin (5000 Units/0.5 ml)) 5,000 unit BID SC Last administered on 04/15/17 08:17; Admin Dose 5,000 UNIT; Start 04/15/17 at 09:00 Acetaminophen (Tylenol Tab) 650 mg Q6H PRN PO PAIN AND OR ELEVATED TEMP Last administered on 04/15/17 14:35; Admin Dose 650 MG; Start 04/15/17 at 07:30 Erythromycin (Erythromycin Oph Oint) 1 applic BID BOTH EYES Last administered on 04/15/17 11:48; Admin Dose 1 APPLIC; Start 04/15/17 at 11:00 Gabapentin (Neurontin) 100 mg TID PO Last administered on 04/15/17 12:40; Admin Dose 100 MG; Start 04/15/17 at 13:00 Neomycin/ Polymyxin/ Gramicidin (Neosporin Oph Drop) 1 drop QHS BOTH EYES ; Start 04/15/17 at 21:00 Patient Own Medication 1 ea QID BOTH EYES Last administered on 04/15/17 14:35 ; Admin Dose 1 EA; Start 04/15/17 at 14:30 Morphine Sulfate (morphine) 4 mg Q4H PRN IV pain; Start 04/15/17 at 10:00 Acetaminophen/ Hydrocodone Bitart ([place] (5/325)) 1 tab Q4H PRN PO pain; Start 04/15/17 at 10:00 Patient Own Medication 1 ea QID BOTH EYES Last administered on 04/15/17 13:48 ; Admin Dose 1 EA; Start 04/15/17 at 14:00 CHEKO REYES MD Apr 15, 2017 16:52
[2017-04-15 20:30] VITALS: BP 116/64; RESP 18
[2017-04-15] MEDS: NEOMYC/POLYMYX/GRAM 10 ML OPH BOTH EYES SCH (21:02)
--- NOTE | 2017-04-15 22:14 | CONS ---
DATE OF ADMISSION: 04/14/2017 DATE OF CONSULTATION: 04/15/2017 REASON FOR CONSULTATION: Evaluation for a temporal artery biopsy. PAST MEDICAL HISTORY: This is a 56-year-old female, admitted because of headache. I have been asked to evaluate this patient for a temporal artery biopsy. PAST MEDICAL HISTORY: Hypertension. PAST SURGICAL HISTORY: None. ALLERGIES: NONE. SOCIAL HISTORY: No smoking, drinking, or drug use. MEDICATION: List reviewed. PHYSICAL EXAMINATION: VITAL SIGNS: Blood pressure is 120/60, pulse is 80, respirations 18. HEART: Normal S1, S2. LUNGS: Clear. ABDOMEN: Soft. EXTREMITIES: Warm. IMPRESSION: Rule out vasculitis. RECOMMENDATIONS: Will proceed with temporal artery biopsy. Risks, benefits, complications, and alternatives have been explained to the patient. Consent obtained. Dictated By: Andrew Barker MD /carine/pancho /Document#: [id number]
[2017-04-16 05:48] LABS: BASOPHILS % 0.3 % (0.0-2.0); EOSINOPHILS # 0.1 10^3/ul (0.0-0.5); EOSINOPHILS % 1.3 % (0.0-7.0); HEMATOCRIT 36.2 % (37.0-47.0); HEMOGLOBIN 11.9 g/dl (12.0-16.0); LYMPHOCYTES # 3.3 10^3/ul (0.8-2.9); LYMPHOCYTES % 52.8 % (15.0-51.0); MEAN CORPUSCULAR HEMOGLOBIN 28.3 pg (29.0-33.0); MEAN CORPUSCULAR HGB CONC 32.9 g/dl (32.0-37.0); MEAN PLATELET VOLUME 10.6 fl (7.4-10.4); MONOCYTE # 0.3 10^3/ul (0.3-0.9); MONOCYTES % 5.5 % (0.0-11.0); NEUTROPHILS % 39.9 % (39.0-77.0); PLATELET COUNT 276 10^3/UL (140-415); RED BLOOD COUNT 4.21 10^6/ul (4.20-5.40); RED CELL DISTRIBUTION WIDTH 12.9 % (11.5-14.5); WHITE BLOOD COUNT 6.2 10^3/ul (4.8-10.8)
[2017-04-16 06:03] LABS: INR 1.02; PROTIME 13.4 Sec (12.2-14.2)
[2017-04-16 06:06] LABS: ALBUMIN 4.1 g/dl (3.3-4.9); ALBUMIN/GLOBULIN RATIO 0.85; BILIRUBIN,INDIRECT 0.3 mg/dl (0-1.1); BILIRUBIN,TOTAL 0.3 mg/dl (0.2-1.3); CALCIUM 9.3 mg/dl (8.4-10.2); CHOL/HDL RATIO 2.5 RATIO; CREATININE 0.69 mg/dl (0.44-1.00); POTASSIUM 4.3 mmol/L (3.5-5.1); TOTAL PROTEIN 8.9 g/dl (6.1-8.1)
[2017-04-16 07:21] LABS: THYROID STIMULATING HORMONE 4.21 MIU/L (0.465-4.680)
[2017-04-16] MEDS: HEPARIN 5,000 UNIT/0.5 ML VIAL SC SCH (09:00)
[2017-04-16] MEDS: GABAPENTIN 100 MG CAP PO SCH ×3 (09:00→21:17)
[2017-04-16] MEDS: HYDROCODONE/APAP (5/325) TAB PO PRN ×3 (09:23→18:13)
[2017-04-16] MEDS: OFLOXACIN 0.3% BOTH EYES SCH ×4 (09:24→21:19)
[2017-04-16] MEDS: KETOROLAC 0.5% BOTH EYES SCH ×4 (09:24→21:18)
[2017-04-16] MEDS: OPTHALMIC BOTH EYES SCH ×8 (09:24→21:19)
[2017-04-16] MEDS: ERYTHROMYCIN 1 GM OPH OINT BOTH EYES SCH ×2 (09:25→21:19)
--- NOTE | 2017-04-16 13:28 | CONS ---
Date/Time of Note Date/Time of Note DATE: 04/16/17 TIME: 13:15 Consult Date/Type/Reason Admit Date/Time Apr 14, 2017 at 20:43 Initial Consult Date Type of Consultation: Rheum Subjective No new complaints. Faint headache persists. No new visual changes or jaw claudication symptoms. Objective Vital Signs Date Time Temp Pulse Resp B/P Pulse Ox O2 Delivery O2 Flow Rate FiO2 04/15/17 20:30 99.4 67 18 116/64 97 Intake and Output 04/15/17 04/15/17 04/16/17 15:00 23:00 07:00 Intake Total 1440 ml Balance 1440 ml Exam GENERAL APPEARANCE: Alert and oriented in no acute distress. SKIN: No rash.. HEENT: Head normocephalic and atraumatic. Extraocular movements intact. Oropharynx is clear. Very slight tenderness right temporal region. No temporal artery prominence LUNGS: Clear to auscultation bilaterally. HEART: S1 and S2. Regular rate and rhythm. ABDOMEN: Soft abdomen, No masses or tenderness. EXTREMITIES: Normal pulses, no cyanosis or edema. MUSCULOSKELETAL: No synovitis, NEUROLOGIC: Cranial nerves grossly intact. Results/Medications Result Diagram: 04/16/17 0450 04/16/17 0450 Results 24 hrs Laboratory Tests Test 04/15/17 18:50 04/16/17 04:50 Serum HCG, Qualitative NEGATIVE White Blood Count 6.2 Red Blood Count 4.21 Hemoglobin 11.9 L Hematocrit 36.2 L Mean Corpuscular Volume 86.0 Mean Corpuscular Hemoglobin 28.3 L Mean Corpuscular Hemoglobin Concent 32.9 Red Cell Distribution Width 12.9 Platelet Count 276 Mean Platelet Volume 10.6 H Neutrophils % 39.9 Lymphocytes % 52.8 H Monocytes % 5.5 Eosinophils % 1.3 Basophils % 0.3 Nucleated Red Blood Cells % 0.0 Neutrophils # (Manual) 2.5 Lymphocytes # 3.3 H Monocytes # 0.3 Eosinophils # 0.1 Basophils # 0.0 Nucleated Red Blood Cells # 0.0 Prothrombin Time 13.4 Prothrombin Time Ratio 1.0 INR International Normalized Ratio 1.02 Sodium Level 145 H Potassium Level 4.3 Chloride Level 104 Carbon Dioxide Level 28 Anion Gap 17 H Blood Urea Nitrogen 17 Creatinine 0.69 Glucose Level 96 Hemoglobin A1c 5.3 Calcium Level 9.3 Total Bilirubin 0.3 Direct Bilirubin 0.00 Indirect Bilirubin 0.3 Aspartate Amino Transf (AST/SGOT) 27 Alanine Aminotransferase (ALT/SGPT) 26 Alkaline Phosphatase 83 Total Protein 8.9 H Albumin 4.1 Globulin 4.80 H Albumin/Globulin Ratio 0.85 Triglycerides Level 56 Cholesterol Level 130 LDL Cholesterol, Calculated 68 HDL Cholesterol 51 Cholesterol/HDL Ratio 2.5 Thyroid Stimulating Hormone (TSH) 4.210 Medications Current Medications Morphine Sulfate (morphine) 3 mg Q4H PRN IV PAIN; Start 04/14/17 at 22:00 Zolpidem Tartrate (Ambien) 10 mg HS PRN PO INSOMNIA; Start 04/14/17 at 22:00 Heparin Sodium (Porcine) (Heparin (5000 Units/0.5 ml)) 5,000 unit BID SC Last administered on 04/15/17 21:10; Admin Dose 5,000 UNIT; Start 04/15/17 at 09:00 Acetaminophen (Tylenol Tab) 650 mg Q6H PRN PO PAIN AND OR ELEVATED TEMP Last administered on 04/15/17 14:35; Admin Dose 650 MG; Start 04/15/17 at 07:30 Erythromycin (Erythromycin Oph Oint) 1 applic BID BOTH EYES Last administered on 04/16/17 09:25; Admin Dose 1 APPLIC; Start 04/15/17 at 11:00 Gabapentin (Neurontin) 100 mg TID PO Last administered on 04/15/17 21:03; Admin Dose 100 MG; Start 04/15/17 at 13:00 Neomycin/ Polymyxin/ Gramicidin (Neosporin Oph Drop) 1 drop QHS BOTH EYES Last administered on 04/15/17 21:02; Admin Dose 1 DROP; Start 04/15/17 at 21:00 Patient Own Medication 1 ea QID BOTH EYES Last administered on 04/16/17 09:24 ; Admin Dose 1 EA; Start 04/15/17 at 14:30 Morphine Sulfate (morphine) 4 mg Q4H PRN IV pain; Start 04/15/17 at 10:00 Acetaminophen/ Hydrocodone Bitart ([place] (5/325)) 1 tab Q4H PRN PO pain Last administered on 04/16/17 09:23; Admin Dose 1 TAB; Start 04/15/17 at 10:00 Patient Own Medication 1 ea QID BOTH EYES Last administered on 8/31/17at 09:24 ; Admin Dose 1 EA; Start 04/15/17 at 14:00 Assessment/Plan Chief Complaint/Hosp Course ASS. 1. Elevated ESR with normal C-RP and elevated globulin. Consider Multiple Myeloma or myelodysplastic process 2. Headache, Long standing. consider, although doubt Temporal Arteritis 3. Chronic fatigue 4. Questionable history of hypothyroidism. Patient states she was treated with AM tablet for two months and then told to stop a month ago. TSH OK at present. 5. Glaucoma PLAN 1. Awaiting temporal artery biopsy. 2. Will check SPEP and Immunofixation 3. Continue off steroids Problems: OLIVER LAWSON MD Apr 16, 2017 13:26
--- NOTE | 2017-04-16 16:25 | PN ---
Date/Time of Note Date/Time of Note DATE: 04/16/17 TIME: 16:23 Assessment/Plan VTE Prophylaxis VTE Prophylaxis Intervention: contraindicated Lines/Catheters IV [facility] Saline Lock Assessment/Plan Chief Complaint/Hosp Course S: 04/15 events noted. Appreciate salon sales consultant assistance 04/16: Headache vision changes remain. O: Vss PE No pallor. Not much temporal tenderness. eomi. Reg Clear Benign No edema A/P 1. Headache/ vision changes. Stable, for temporal a bx. Hold steroids due to glaucoma at the assistance of her journeyman operator assistant. 2. Chr glaucoma. Follow-up with ophthalmology as soon as possible. 3. Chr hypothyroidism 4. Anemia- spep pending. Problems: Exam/Review of Systems Vital Signs Vitals Vital Signs Date Time Temp Pulse Resp B/P Pulse Ox O2 Delivery O2 Flow Rate FiO2 04/15/17 20:30 99.4 67 18 116/64 97 Intake and Output 04/15/17 04/15/17 04/16/17 15:00 23:00 07:00 Intake Total 1440 ml Balance 1440 ml Results Result Diagram: 04/16/17 0450 04/16/17 0450 Results 24 hrs Laboratory Tests Test 04/15/17 18:50 04/16/17 04:50 Serum HCG, Qualitative NEGATIVE White Blood Count 6.2 Red Blood Count 4.21 Hemoglobin 11.9 L Hematocrit 36.2 L Mean Corpuscular Volume 86.0 Mean Corpuscular Hemoglobin 28.3 L Mean Corpuscular Hemoglobin Concent 32.9 Red Cell Distribution Width 12.9 Platelet Count 276 Mean Platelet Volume 10.6 H Neutrophils % 39.9 Lymphocytes % 52.8 H Monocytes % 5.5 Eosinophils % 1.3 Basophils % 0.3 Nucleated Red Blood Cells % 0.0 Neutrophils # (Manual) 2.5 Lymphocytes # 3.3 H Monocytes # 0.3 Eosinophils # 0.1 Basophils # 0.0 Nucleated Red Blood Cells # 0.0 Prothrombin Time 13.4 Prothrombin Time Ratio 1.0 INR International Normalized Ratio 1.02 Sodium Level 145 H Potassium Level 4.3 Chloride Level 104 Carbon Dioxide Level 28 Anion Gap 17 H Blood Urea Nitrogen 17 Creatinine 0.69 Glucose Level 96 Hemoglobin A1c 5.3 Calcium Level 9.3 Total Bilirubin 0.3 Direct Bilirubin 0.00 Indirect Bilirubin 0.3 Aspartate Amino Transf (AST/SGOT) 27 Alanine Aminotransferase (ALT/SGPT) 26 Alkaline Phosphatase 83 Total Protein 8.9 H Albumin 4.1 Globulin 4.80 H Albumin/Globulin Ratio 0.85 Triglycerides Level 56 Cholesterol Level 130 LDL Cholesterol, Calculated 68 HDL Cholesterol 51 Cholesterol/HDL Ratio 2.5 Thyroid Stimulating Hormone (TSH) 4.210 Medications Medications Current Medications Morphine Sulfate (morphine) 3 mg Q4H PRN IV PAIN; Start 04/14/17 at 22:00 Zolpidem Tartrate (Ambien) 10 mg HS PRN PO INSOMNIA; Start 04/14/17 at 22:00 Heparin Sodium (Porcine) (Heparin (5000 Units/0.5 ml)) 5,000 unit BID SC Last administered on 04/15/17 21:10; Admin Dose 5,000 UNIT; Start 04/15/17 at 09:00 Acetaminophen (Tylenol Tab) 650 mg Q6H PRN PO PAIN AND OR ELEVATED TEMP Last administered on 04/15/17 14:35; Admin Dose 650 MG; Start 04/15/17 at 07:30 Erythromycin (Erythromycin Oph Oint) 1 applic BID BOTH EYES Last administered on 04/16/17 09:25; Admin Dose 1 APPLIC; Start 04/15/17 at 11:00 Gabapentin (Neurontin) 100 mg TID PO Last administered on 04/15/17 21:03; Admin Dose 100 MG; Start 04/15/17 at 13:00 Neomycin/ Polymyxin/ Gramicidin (Neosporin Oph Drop) 1 drop QHS BOTH EYES Last administered on 04/15/17 21:02; Admin Dose 1 DROP; Start 04/15/17 at 21:00 Patient Own Medication 1 ea QID BOTH EYES Last administered on 04/16/17 13:56 ; Admin Dose 1 EA; Start 04/15/17 at 14:30 Morphine Sulfate (morphine) 4 mg Q4H PRN IV pain; Start 04/15/17 at 10:00 Acetaminophen/ Hydrocodone Bitart ([place] (5/325)) 1 tab Q4H PRN PO pain Last administered on 04/16/17 14:02; Admin Dose 1 TAB; Start 04/15/17 at 10:00 Patient Own Medication 1 ea QID BOTH EYES Last administered on 04/16/17 13:56 ; Admin Dose 1 EA; Start 04/15/17 at 14:00 CHEKO REYES MD Apr 16, 2017 16:25
[2017-04-16] MEDS ORDERED: ONDANSETRON 4 MG INJ IV PRN (20:00)
[2017-04-16] MEDS ORDERED: MAGNESIUM HYDROXIDE 30ML CUP PO ONE (20:00)
[2017-04-16] MEDS: SENNA TAB PO SCH (21:17)
[2017-04-16] MEDS: NEOMYC/POLYMYX/GRAM 10 ML OPH BOTH EYES SCH (21:19)
[2017-04-16 21:20] VITALS: BP 127/76; RESP 20
--- NOTE | 2017-04-16 23:48 | RADRPT ---
PROCEDURE: MR Brain and orbits without contrast. CLINICAL INDICATION: 56-year-old female with Headache with visual changes over the last 2 weeks. TECHNIQUE: An MRI of the brain was performed without contrast utilizing the following sequences: Sagittal T1 weighted, sagittal FLAIR, axial T1, axial FLAIR, axial T2 weighted, axial diffusion weig hted (EPI technique [id number]), axial ADC mapping. Additionally, thin section coronal imaging through t he in orbits was performed with the following sequences: Coronal FLAIR, T1 and T2. The images were reviewed on a high-resolution PACS workstation. COMPARISON: No prior studies are available for comparison. FINDINGS: MRI brain: Diffusion weighted sequences demonstrate no evidence of acute lacunar or lobar infarctio n. There is no intracranial hemorrhage, extra-axial fluid collection, mass lesion, midline shift or hydrocephalous. The ventricles, sulci and cisterns are normal in size and configuration. The basal cisterns are patent. The signal intensity is normal throughout the cerebrum, brain stem and cerebe llum. Normal flow voids are visible the proximal intracranial arteries and dural sinuses, indicatin g patency. The midline structures are intact. There is a mucous retention left maxillary sinus. The remaining paranasal sinuses, mastoid air cell s and middle ear cavities are normally aerated. The orbits, calvarium and extracranial soft tissues are normal in appearance. MRI orbits: The high-resolution images to the orbits demonstrate normal appearance of the optic ner ves, chiasm and tracts. There is no evidence of mass lesion or abnormal signal in the optic nerves. The retro-orbital fat is normal in appearance. The ocular globes are unremarkable. The cavernous sinuses are symmetric. IMPRESSION: 1. Normal MRI of the brain without contrast. No intracranial hemorrhage, mass lesion, infarction o r hydrocephalous. 2. No white matter lesions to suggest sequelae of chronic headaches. 3. Normal MRI of the orbits without contrast. The optic nerves, chiasm and tracts are normal in ap pearance. RPTAT: HGAS .Rafael Huerta MD, MD Date Time Electronically viewed and signed by .Rafael Huerta MD, MD on 04/16/2017 23:48 .S/
[2017-04-17 04:01] VITALS: BP 106/60; RESP 20
[2017-04-17 05:34] LABS: BASOPHILS % 0.3 % (0.0-2.0); EOSINOPHILS # 0.1 10^3/ul (0.0-0.5); EOSINOPHILS % 1.4 % (0.0-7.0); HEMATOCRIT 35.9 % (37.0-47.0); HEMOGLOBIN 11.8 g/dl (12.0-16.0); LYMPHOCYTES # 2.9 10^3/ul (0.8-2.9); LYMPHOCYTES % 45.3 % (15.0-51.0); MEAN CORPUSCULAR HEMOGLOBIN 28.2 pg (29.0-33.0); MEAN CORPUSCULAR HGB CONC 32.9 g/dl (32.0-37.0); MEAN CORPUSCULAR VOLUME 85.7 fl (82.0-101.0); MEAN PLATELET VOLUME 10.4 fl (7.4-10.4); MONOCYTE # 0.4 10^3/ul (0.3-0.9); MONOCYTES % 5.9 % (0.0-11.0); NEUTROPHILS % 46.9 % (39.0-77.0); PLATELET COUNT 295 10^3/UL (140-415); RED BLOOD COUNT 4.19 10^6/ul (4.20-5.40); RED CELL DISTRIBUTION WIDTH 12.6 % (11.5-14.5); WHITE BLOOD COUNT 6.5 10^3/ul (4.8-10.8)
[2017-04-17 06:10] LABS: ALBUMIN 4.1 g/dl (3.3-4.9); ALBUMIN/GLOBULIN RATIO 0.87; BILIRUBIN,INDIRECT 0.1 mg/dl (0-1.1); BILIRUBIN,TOTAL 0.1 mg/dl (0.2-1.3); CALCIUM 9.4 mg/dl (8.4-10.2); CREATININE 0.77 mg/dl (0.44-1.00); MAGNESIUM 2.4 mg/dl (1.7-2.5); POTASSIUM 3.9 mmol/L (3.5-5.1); TOTAL PROTEIN 8.8 g/dl (6.1-8.1)
[2017-04-17 06:16] LABS: IRON 44 ug/dl (35-150)
[2017-04-17 06:25] LABS: TOTAL IRON BINDING CAPACITY 316 ug/dl (241-421)
[2017-04-17 08:01] VITALS: BP 109/63; RESP 18
[2017-04-17] MEDS: HYDROCODONE/APAP (5/325) TAB PO PRN ×3 (08:14→22:14)
[2017-04-17] MEDS: GABAPENTIN 100 MG CAP PO SCH ×3 (08:14→20:12)
[2017-04-17] MEDS: SENNA TAB PO SCH (08:14)
[2017-04-17] MEDS: ERYTHROMYCIN 1 GM OPH OINT BOTH EYES SCH ×2 (08:15→20:12)
[2017-04-17] MEDS: OFLOXACIN 0.3% BOTH EYES SCH ×4 (08:17→20:11)
[2017-04-17] MEDS: OPTHALMIC BOTH EYES SCH ×8 (08:17→20:11)
[2017-04-17] MEDS: KETOROLAC 0.5% BOTH EYES SCH ×4 (08:23→20:11)
[2017-04-17] MEDS: morphine 4 MG/ML VIAL IV PRN (11:47)
--- NOTE | 2017-04-17 11:58 | CONS ---
Date/Time of Note Date/Time of Note DATE: 04/17/17 TIME: 11:55 Consult Date/Type/Reason Admit Date/Time Apr 14, 2017 at 20:43 Initial Consult Date Type of Consultation: Rheum Subjective Continues with right temporal headache that shoots down to posterior neck. No vision changes, no jaw claudication. Has been evaluated by surgeon and to have temporal artery biopsy today. Objective Vital Signs Date Time Temp Pulse Resp B/P Pulse Ox O2 Delivery O2 Flow Rate FiO2 04/17/17 08:01 97.9 56 18 109/63 97 Intake and Output 04/16/17 04/16/17 04/17/17 15:00 23:00 07:00 Intake Total 580 ml 0 ml Output Total 900 ml Balance 580 ml -900 ml Exam GENERAL APPEARANCE: Alert and oriented in no acute distress. SKIN: No rash.. HEENT: Head normocephalic and atraumatic. Extraocular movements intact. Oropharynx is clear. Very slight tenderness right temporal region. No temporal artery prominence LUNGS: Clear to auscultation bilaterally. HEART: S1 and S2. Regular rate and rhythm. ABDOMEN: Soft abdomen, No masses or tenderness. EXTREMITIES: Normal pulses, no cyanosis or edema. MUSCULOSKELETAL: No synovitis, NEUROLOGIC: Cranial nerves grossly intact. Results/Medications Result Diagram: 04/17/178 04/17/17427 Results 24 hrs Laboratory Tests Test 04/17/17 04:28 White Blood Count 6.5 Red Blood Count 4.19 L Hemoglobin 11.8 L Hematocrit 35.9 L Mean Corpuscular Volume 85.7 Mean Corpuscular Hemoglobin 28.2 L Mean Corpuscular Hemoglobin Concent 32.9 Red Cell Distribution Width 12.6 Platelet Count 295 Mean Platelet Volume 10.4 Neutrophils % 46.9 Lymphocytes % 45.3 Monocytes % 5.9 Eosinophils % 1.4 Basophils % 0.3 Nucleated Red Blood Cells % 0.0 Neutrophils # (Manual) 3.0 Lymphocytes # 2.9 Monocytes # 0.4 Eosinophils # 0.1 Basophils # 0.0 Nucleated Red Blood Cells # 0.0 Sodium Level 140 Potassium Level 3.9 Chloride Level 102 Carbon Dioxide Level 31 Anion Gap 11 Blood Urea Nitrogen 16 Creatinine 0.77 Glucose Level 97 Calcium Level 9.4 Phosphorus Level 5.0 H Magnesium Level 2.4 Iron Level 44 Total Iron Binding Capacity 316 Percent Iron Saturation 14 L Ferritin 35.8 Total Bilirubin 0.1 L Direct Bilirubin 0.00 Indirect Bilirubin 0.1 Aspartate Amino Transf (AST/SGOT) 26 Alanine Aminotransferase (ALT/SGPT) 27 Alkaline Phosphatase 79 Total Protein 8.8 H Albumin 4.1 Globulin 4.70 H Albumin/Globulin Ratio 0.87 Medications Current Medications Morphine Sulfate (morphine) 3 mg Q4H PRN IV PAIN; Start 04/14/17 at 22:00 Zolpidem Tartrate (Ambien) 10 mg HS PRN PO INSOMNIA; Start 04/14/17 at 22:00 Acetaminophen (Tylenol Tab) 650 mg Q6H PRN PO PAIN AND OR ELEVATED TEMP Last administered on 04/15/17 14:35; Admin Dose 650 MG; Start 04/15/17 at 07:30 Erythromycin (Erythromycin Oph Oint) 1 applic BID BOTH EYES Last administered on 04/17/17 08:15; Admin Dose 1 APPLIC; Start 04/15/17 at 11:00 Gabapentin (Neurontin) 100 mg TID PO Last administered on 04/17/17 08:14; Admin Dose 100 MG; Start 04/15/17 at 13:00 Neomycin/ Polymyxin/ Gramicidin (Neosporin Oph Drop) 1 drop QHS BOTH EYES Last administered on 04/16/17 21:19; Admin Dose 1 DROP; Start 04/15/17 at 21:00 Patient Own Medication 1 ea QID BOTH EYES Last administered on 04/17/17 08:17; Admin Dose 1 EA; Start 04/15/17 at 14:30 Morphine Sulfate (morphine) 4 mg Q4H PRN IV pain Last administered on 04/17/17 11:47; Admin Dose 4 MG; Start 04/15/17 at 10:00 Acetaminophen/ Hydrocodone Bitart ([place] (5/325)) 1 tab Q4H PRN PO pain Last administered on 04/17/17 08:14; Admin Dose 1 TAB; Start 04/15/17 at 10:00 Patient Own Medication 1 ea QID BOTH EYES Last administered on 04/17/17 08:23; Admin Dose 1 EA; Start 04/15/17 at 14:00 Ondansetron HCl (Zofran Inj) 4 mg Q6H PRN IV NAUSEA AND/OR VOMITING Last administered on 04/16/17 19:58; Admin Dose 4 MG; Start 04/16/17 at 20:00 Senna (Senokot) 2 tab DAILY PO Last administered on 04/17/17 08:14; Admin Dose 2 TAB; Start 04/16/17 at 20:00 Assessment/Plan Chief Complaint/Hosp Course ASS. 1. Elevated ESR with normal C-RP and elevated globulin. Consider Multiple Myeloma or myelodysplastic process 2. Headache, Long standing. consider, although doubt Temporal Arteritis 3. Chronic fatigue 4. Questionable history of hypothyroidism. Patient states she was treated with AM tablet for two months and then told to stop a month ago. TSH OK at present. 5. Glaucoma PLAN 1. Awaiting temporal artery biopsy. 2. Will check SPEP and Immunofixation 3. Continue off steroids per wishes of Ophtho. Problems: DANISHA LEIGH MD Apr 17, 2017 11:58
[2017-04-17 14:48] VITALS: BP 122/78; RESP 18
--- NOTE | 2017-04-17 17:19 | PN ---
Date/Time of Note Date/Time of Note DATE: 04/17/17 TIME: 17:18 Assessment/Plan VTE Prophylaxis VTE Prophylaxis Intervention: ambulation Lines/Catheters IV Catheter Type (from Nrs): Peripheral IV Assessment/Plan Chief Complaint/Hosp Course S: 04/15 events noted. Appreciate data security consultant assistance 04/16: Headache vision changes remain. 04/17: No events. Follows commands no loss of vision. O: Vss PE No pallor. Not much temporal tenderness. eomi. Reg Clear Benign No edema A/P 1. Headache/ vision changes. Stable, for temporal A bx. Hold steroids due to glaucoma at the assistance of her commercial agent. -Low perioperative risk. May proceed forward to temporal biopsy without any further delay. 2. Chr glaucoma. Follow-up with ophthalmology as soon as possible. 3. Chr hypothyroidism 4. Anemia- spep pending. Problems: Exam/Review of Systems Vital Signs Vitals Vital Signs Date Time Temp Pulse Resp B/P Pulse Ox O2 Delivery O2 Flow Rate FiO2 04/17/17 14:48 98.0 65 18 122/78 96 Intake and Output 04/16/17 04/16/17 04/17/17 15:00 23:00 07:00 Intake Total 580 ml 0 ml Output Total 900 ml Balance 580 ml -900 ml Results Result Diagram: 04/17/17 0428 04/17/17 0428 Results 24 hrs Laboratory Tests Test 04/17/17 04:28 White Blood Count 6.5 Red Blood Count 4.19 L Hemoglobin 11.8 L Hematocrit 35.9 L Mean Corpuscular Volume 85.7 Mean Corpuscular Hemoglobin 28.2 L Mean Corpuscular Hemoglobin Concent 32.9 Red Cell Distribution Width 12.6 Platelet Count 295 Mean Platelet Volume 10.4 Neutrophils % 46.9 Lymphocytes % 45.3 Monocytes % 5.9 Eosinophils % 1.4 Basophils % 0.3 Nucleated Red Blood Cells % 0.0 Neutrophils # (Manual) 3.0 Lymphocytes # 2.9 Monocytes # 0.4 Eosinophils # 0.1 Basophils # 0.0 Nucleated Red Blood Cells # 0.0 Sodium Level 140 Potassium Level 3.9 Chloride Level 102 Carbon Dioxide Level 31 Anion Gap 11 Blood Urea Nitrogen 16 Creatinine 0.77 Glucose Level 97 Calcium Level 9.4 Phosphorus Level 5.0 H Magnesium Level 2.4 Iron Level 44 Total Iron Binding Capacity 316 Percent Iron Saturation 14 L Ferritin 35.8 Total Bilirubin 0.1 L Direct Bilirubin 0.00 Indirect Bilirubin 0.1 Aspartate Amino Transf (AST/SGOT) 26 Alanine Aminotransferase (ALT/SGPT) 27 Alkaline Phosphatase 79 Total Protein 8.8 H Albumin 4.1 Globulin 4.70 H Albumin/Globulin Ratio 0.87 Medications Medications Current Medications Morphine Sulfate (morphine) 3 mg Q4H PRN IV PAIN; Start 04/14/17 at 22:00 Zolpidem Tartrate (Ambien) 10 mg HS PRN PO INSOMNIA; Start 04/14/17 at 22:00 Acetaminophen (Tylenol Tab) 650 mg Q6H PRN PO PAIN AND OR ELEVATED TEMP Last administered on 04/15/17 14:35; Admin Dose 650 MG; Start 04/15/17 at 07:30 Erythromycin (Erythromycin Oph Oint) 1 applic BID BOTH EYES Last administered on 04/17/17 08:15; Admin Dose 1 APPLIC; Start 04/15/17 at 11:00 Gabapentin (Neurontin) 100 mg TID PO Last administered on 04/17/17 13:16; Admin Dose 100 MG; Start 04/15/17 at 13:00 Neomycin/ Polymyxin/ Gramicidin (Neosporin Oph Drop) 1 drop QHS BOTH EYES Last administered on 04/16/17 21:19; Admin Dose 1 DROP; Start 04/15/17 at 21:00 Patient Own Medication 1 ea QID BOTH EYES Last administered on 04/17/17 13:17; Admin Dose 1 EA; Start 04/15/17 at 14:30 Morphine Sulfate (morphine) 4 mg Q4H PRN IV pain Last administered on 04/17/17 11:47; Admin Dose 4 MG; Start 04/15/17 at 10:00 Acetaminophen/ Hydrocodone Bitart ([place] (5/325)) 1 tab Q4H PRN PO pain Last administered on 04/17/17 08:14; Admin Dose 1 TAB; Start 04/15/17 at 10:00 Patient Own Medication 1 ea QID BOTH EYES Last administered on 04/17/17 13:17; Admin Dose 1 EA; Start 04/15/17 at 14:00 Ondansetron HCl (Zofran Inj) 4 mg Q6H PRN IV NAUSEA AND/OR VOMITING Last administered on 04/16/17 19:58; Admin Dose 4 MG; Start 04/16/17 at 20:00 Senna (Senokot) 2 tab DAILY PO Last administered on 04/17/17 08:14; Admin Dose 2 TAB; Start 04/16/17 at 20:00 CHEKO REYES MD Apr 17, 2017 17:19
--- NOTE | 2017-04-17 17:24 | PDOCDIS ---
Discharge Instructions DIAGNOSIS Discharge Diagnosis headache CONDITION Patient Condition: Stable HOME CARE INSTRUCTIONS: Special Diet: REGULAR ACTIVITY: Activity Restrictions: Slowly Increase Activity Do not Drive FOLLOW UP/APPOINTMENTS Follow-up Plan Appt PCP 1wk Ophthalmology 1wk Dr Barker & Dr Zachary Pittman/ [place] 1-2wks CHEKO REYES MD Apr 17, 2017 17:24
[2017-04-17] MEDS ORDERED: NA PHOSPHATE/BIPHOS 133 ML ENEMA PR ONE (17:30)
[2017-04-17] MEDS ORDERED: MINERAL OIL 133 ML ENEMA PR PRN (17:30)
[2017-04-17] MEDS ORDERED: IBUPROFEN 600 MG TAB PO PRN (17:30)
--- NOTE | 2017-04-17 18:25 | RADRPT ---
PROCEDURE: X-ray Chest. CLINICAL INDICATION: Preoperative evaluation. TECHNIQUE: Single view chest x-ray. COMPARISON: Exam dated 07/05/2016. FINDINGS: There are bilateral breast implants in place. There are atherosclerotic changes of the aor ta. The cardiomediastinal silhouette is within normal limits. The lungs are clear without focal con solidation, effusion, or pneumothorax. There are no acute osseous abnormalities. IMPRESSION: 1. No acute cardiopulmonary abnormality. 2. Vascular calcifications consistent with atherosclerosis. RPTAT: HLBP .Kenan Beard MD, MD Date Time Electronically viewed and signed by .Kenan Beard MD, on 04/17/2017 18:25 .P/
[2017-04-17] MEDS: NEOMYC/POLYMYX/GRAM 10 ML OPH BOTH EYES SCH (20:12)
[2017-04-17 20:28] VITALS: BP 131/82; RESP 16
[2017-04-18 01:23] LABS: PROTEIN, TOTAL 7.9 g/dL (6.1-8.1)
[2017-04-18 02:37] VITALS: BP 117/66; RESP 16
[2017-04-18 06:10] LABS: BASOPHILS % 0.3 % (0.0-2.0); EOSINOPHILS # 0.1 10^3/ul (0.0-0.5); EOSINOPHILS % 1.8 % (0.0-7.0); HEMATOCRIT 37.5 % (37.0-47.0); HEMOGLOBIN 12.5 g/dl (12.0-16.0); LYMPHOCYTES # 3.4 10^3/ul (0.8-2.9); LYMPHOCYTES % 46.3 % (15.0-51.0); MEAN CORPUSCULAR HEMOGLOBIN 28.9 pg (29.0-33.0); MEAN CORPUSCULAR HGB CONC 33.3 g/dl (32.0-37.0); MEAN CORPUSCULAR VOLUME 86.8 fl (82.0-101.0); MEAN PLATELET VOLUME 10.7 fl (7.4-10.4); MONOCYTE # 0.5 10^3/ul (0.3-0.9); MONOCYTES % 6.1 % (0.0-11.0); NEUTROPHILS % 45.2 % (39.0-77.0); PLATELET COUNT 321 10^3/UL (140-415); RED BLOOD COUNT 4.32 10^6/ul (4.20-5.40); RED CELL DISTRIBUTION WIDTH 12.6 % (11.5-14.5); WHITE BLOOD COUNT 7.4 10^3/ul (4.8-10.8)
[2017-04-18 06:24] LABS: INR 0.91; PROTIME 12.2 Sec (12.2-14.2)
[2017-04-18 06:25] LABS: PARTIAL THROMBOPLASTIN TIME 31.1 Sec (25.0-35.0)
[2017-04-18 06:28] LABS: CALCIUM 9.5 mg/dl (8.4-10.2); CREATININE 0.79 mg/dl (0.44-1.00)
[2017-04-18] MEDS: HYDROCODONE/APAP (5/325) TAB PO PRN (06:31)
[2017-04-18 07:00] VITALS: BP 105/75; RESP 18
[2017-04-18] MEDS: SENNA TAB PO SCH (08:11)
[2017-04-18] MEDS: GABAPENTIN 100 MG CAP PO SCH ×2 (08:11→12:35)
[2017-04-18] MEDS: ERYTHROMYCIN 1 GM OPH OINT BOTH EYES SCH (09:00)
[2017-04-18] MEDS: morphine 4 MG/ML VIAL IV PRN (10:32)
[2017-04-18] MEDS: OFLOXACIN 0.3% BOTH EYES SCH ×2 (11:37→12:43)
[2017-04-18] MEDS: OPTHALMIC BOTH EYES SCH ×4 (11:37→12:43)
[2017-04-18] MEDS: KETOROLAC 0.5% BOTH EYES SCH ×2 (11:37→12:43)
[2017-04-18 14:00] VITALS: BP 123/65; RESP 20
--- NOTE | 2017-04-18 14:13 | PN ---
Date/Time of Note Date/Time of Note DATE: 04/18/17 TIME: 14:11 Assessment/Plan Lines/Catheters IV Catheter Type (from Nrsg): Saline Lock Assessment/Plan Chief Complaint/Hosp Course BELLA pt needs TA bx OR boiler broke down plan for TA Bx as put pt Problems: Subjective 24 Hr Interval Summary Constitutional: improved Pain Control: mild Exam/Review of Systems Vital Signs Vitals Vital Signs Date Time Temp Pulse Resp B/P Pulse Ox O2 Delivery O2 Flow Rate FiO2 04/18/17 07:00 98.7 53 18 105/75 98 Intake and Output 04/17/17 04/17/17 04/18/17 15:00 23:00 07:00 Intake Total 1080 ml 0 ml Balance 1080 ml 0 ml Exam ENMT: mucosa pink and moist, nl external ears & nose, nl lips & teeth, nl nasal mucosa & septum Neck: non-tender, supple Respiratory: clear to auscultation, normal air movement Cardiovascular: nl pulses, regular rate and rhythm Results Result Diagram: 04/18/17 0455 04/18/17 0455 NADIA MCGARRY MD Apr 18, 2017 14:13
--- NOTE | 2017-04-18 15:19 | DS ---
Date/Time of Note Date/Time of Note DATE: 04/18/17 TIME: 15:08 Discharge Summary Admission/Discharge Info Admit Date/Time Apr 14, 2017 at 20:43 Discharge Date/Time Discharge Diagnosis headache Patient Condition: Stable Procedures MRI brain IMPRESSION: 1. Normal MRI of the brain without contrast. No intracranial hemorrhage, mass lesion, infarction or hydrocephalous. 2. No white matter lesions to suggest sequelae of chronic headaches. 3. Normal MRI of the orbits without contrast. The optic nerves, chiasm and tracts are normal in appearance. RPTAT: HGAS .Rafael Huerta MD, Date Time Electronically viewed and signed by .Rafael Huerta MD, MD on 04/16/2017 23: 48 Hx of Present Illness This is a 56-year-old female with a history of gastritis, hypothyroidism who presented to the emergency department complaining of a headache. Pain started about 6 weeks ago. Headache is mainly right sided with associated visual disturbance and photophobia. She also describes pain behind her right eye. About 5 or 6 weeks ago, she saw an computer forensics analyst and has been treated with ophthalmic antibiotics for eye infections. Her symptoms however persisted. She was evaluated here in our ER at the beginning of this month. At that time CT of the head was negative for any acute processes. She denied fever, neck stiffness, facial droop, discharge from her eyes. She had an outpatient workup which showed an elevated ESR, which caused concern for temporal arteritis. Patient does have history of glaucoma and because of that ophthalmology recommended again is a steroid because of elevated intraocular pressure. She is scheduled to see a bender machine operator sometime next month. When she presented to the ER today, vitals were stable. ESR is 115. Except a sodium of 147, CBC and CMP were within acceptable range. . Hospital Course Evaluated and managed for headache with vision changes. Sent to ER by her computer forensics analyst. ESR was 115 however she does not of significant age for temporal arteritis. There is no family history of hypercoagulable disorders. Patient was seen by rheumatology who agreed that one could proceed of the biopsy. I called general surgery but unfortunately we could not easily palpate her temporal artery. Therefore I called vascular surgery. The next day unfortunately the OR boiler burst and apparently we cannot sterilize OR equipment at this time. I do not know when it will be fixed. Therefore the patient will have an outpatient referral to get a temporal artery biopsy. The differential includes migraine disorder. I would ask the patient to follow-up with ophthalmology and I will place a referral to neurology. To follow-up with primary to help assist with chronic pain assistance. S: 04/15 events noted. Appreciate datastage consultant assistance 04/16: Headache vision changes remain. 04/17: No events. Follows commands no loss of vision. O: Vss PE No pallor. Not much temporal tenderness. eomi. Reg Clear Benign No edema A/P 1. Headache/ vision changes. Stable, for temporal A bx. Hold steroids due to glaucoma at the assistance of her computer forensics analyst. -Low perioperative risk. May proceed forward to temporal biopsy without any further delay. 2. Chr glaucoma. Follow-up with ophthalmology as soon as possible. 3. Chr hypothyroidism 4. Anemia- spep pending. Home Meds Active Scripts Gabapentin* (Neurontin*) 100 Mg Capsule, 100 MG PO TID, #90 CAP Prov:BRYANT,JAYLEN 03/18/17 Reported Medications Neomycin-Polymyxn B-Gramicidin (Zpkgdcus-Xbez-Lfag Eye Drop) 10 Ml Drops, 1 DROP BOTH EYES QHS, EA 04/14/17 Ketorolac Tromethamine Oph (Ketorolac Tromethamine Oph) 0.5%-5 Ml Opht Drops, 1 DROP BOTH EYES QID, EA 04/14/17 Ciprofloxacin Opht* (Ciloxan*) 0.3%-3.5 Opht Oint, 1 APPLIC BOTH EYES QID, EA 04/14/17 Ofloxacin* (Ocuflox*) 0.3%-5 Ml Ophth Drops, 1 DROP BOTH EYES QID, BOTTLE 04/14/17 Erythromycin (Erythromycin Opth) 3.5 Gm Oint..gm., 1 APPLIC BOTH EYES BID, #1 TUB 04/14/17 Tramadol HCl/Acetaminophen (Ultracet Tablet) 1 Each Tablet, 1 EACH PO BID, TAB TAKE 37.5-325 MG BID 04/14/17 Discontinued Reported Medications Docusate Calcium* (Stool Softener*) 240 Mg Capsule, 240 MG PO DAILY, CAP 11/19/14 Omeprazole* (Omeprazole*) 20 Mg Capsule.dr, 20 MG PO AC BREAKFAST, CAP 11/19/14 Discontinued Scripts Famotidine* (Pepcid*) 20 Mg Tablet, 20 MG PO BID for 10 Days, TAB Prov:ZION PILLAI PA-C 07/05/16 Naproxen* (Naprosyn*) 500 Mg Tablet, 500 MG PO BID Y for PAIN AND/OR INFLAMMATION, #30 TAB Prov:ZION PILLAI PA-C 07/05/16 Meclizine Hcl* (Antivert*) 12.5 Mg Tab, 12.5 MG PO Q6H Y for DIZZINESS, #20 TAB Prov:ZION PILLAI PA-C 07/05/16 Hydrocodone/Acetaminophen ([place] 5-325 Tablet) 1 Each Tablet, 1 TAB PO Q6H Y for PAIN, #10 TAB Prov:ZION PILLAI PA-C 07/05/16 Cephalexin* (Keflex*) 500 Mg Capsule, 500 MG PO QID for 7 Days, CAP Prov:ANA LOVELL 12/01/15 Mupirocin* (Bactroban*) 2% -22 Gram Oint...g., 1 APPLIC TOP BID for 7 Days, EA Prov:ANA LOVELL 12/01/15 Guaifenesin-Dextromethorphan* (Robitussin* DM) 100MG/10MG/5ML Syrup, 10 ML PO Q6H Y for COUGH, #240 ML 0 Refills Prov:BING PICKERING PA-C 08/18/15 Fluticasone Propionate (Flonase Allergy Relief) 9.9 Ml Avery.susp, 1 SPRAY NASAL BID, #1 BOTTLE 0 Refills TO EACH NOSTRIL Prov:BING PICKERING PA-C 08/18/15 Ibuprofen* (Ibuprofen*) 200 Mg Capsule, 200 MG PO Q6, #30 CAP 0 Refills Prov:BING PICKERING PA-C 08/18/15 Acetaminophen (Tylenol) 500 Mg Tab, 500 MG PO Q6, #30 TAB 0 Refills Prov:BING PICKERING PA-C 08/18/15 Ipoxdcdymtlfk-Djmputwajk-Thdbjeyx-Codeine* (Fioricet w/Codeine*) [id number] -30MG Cap, 1 CAP PO Q4H Y for PAIN LEVEL 1-5, #20 CAP Prov:KRISS CHAUDHARI PA-C 06/01/15 Tramadol HCl (Tramadol HCl) 50 Mg Tab, 50 MG PO Q4 Y for PAIN, #10 TAB Prov:KRISS CHAUDHARI PA-C 01/23/15 Amoxicillin-Clavulanate K* (Augmentin*) 875 Mg Tab, 875 MG PO BID for 7 Days, TAB Prov:KRISS CHAUDHARI PA-C 01/23/15 Primary Care Provider Mimi Silva Time spent on discharge: > 30 minutes Pending Labs Laboratory Tests Test 04/17/17 21:10 04/18/17 04:55 Stool Occult Blood NEGATIVE (NEGATIVE) White Blood Count 7.410^3/ul (4.8-10.8) Red Blood Count 4.3210^6/ul (4.20-5.40) Hemoglobin 12.5g/dl (12.0-16.0) Hematocrit 37.5% (37.0-47.0) Mean Corpuscular Volume 86.8fl (82.0-101.0) Mean Corpuscular Hemoglobin 28.9pg (29.0-33.0) Mean Corpuscular Hemoglobin Concent 33.3g/dl (32.0-37.0) Red Cell Distribution Width 12.6% (11.5-14.5) Platelet Count 98040^3/UL (140-415) Mean Platelet Volume 10.7fl (7.4-10.4) Neutrophils % 45.2% (39.0-77.0) Lymphocytes % 46.3% (15.0-51.0) Monocytes % 6.1% (0.0-11.0) Eosinophils % 1.8% (0.0-7.0) Basophils % 0.3% (0.0-2.0) Nucleated Red Blood Cells % 0.0/100WBC (0.0-0.0) Neutrophils # (Manual) 3.310^3/ul (1.7-7.5) Lymphocytes # 3.410^3/ul (0.8-2.9) Monocytes # 0.510^3/ul (0.3-0.9) Eosinophils # 0.110^3/ul (0.0-0.5) Basophils # 0.010^3/ul (0.0-0.1) Nucleated Red Blood Cells # 0.010^3/ul (0.0-0.0) Prothrombin Time 12.2Sec (12.2-14.2) Prothrombin Time Ratio 1.0 INR International Normalized Ratio 0.91 Activated Partial Thromboplast Time 31.1Sec (25.0-35.0) Sodium Level 140mmol/L (135-144) Potassium Level 5.0mmol/L (3.5-5.1) Chloride Level 101mmol/L (97-110) Carbon Dioxide Level 29mmol/L (21-31) Anion Gap 15 (8-16) Blood Urea Nitrogen 16mg/dl (7-20) Creatinine 0.79mg/dl (0.44-1.00) Glucose Level 92mg/dl (70-220) Calcium Level 9.5mg/dl (8.4-10.2) CHEKO REYES MD Apr 18, 2017 15:18
[2017-04-18] MEDS ORDERED: HYDR-3498 PO (15:28)
[2017-04-18 18:07] LABS: ALBUMIN 3.5 g/dL (3.8-4.8)
[2017-04-21 14:26] LABS: CREATININE, RANDOM URINE 25 mg/dL (20-320); PROTEIN/CREATININE RATIO NOTE mg/g creat (21-161)
== END 2017-04-18 16:20 | disposition home or self-care (01) | DRG 103 ==
LOC: FTE 15:03 → MS1 20:43
PROVIDERS: ADMIT Internal Medicine; ATTEND Internal Medicine
DX: R51 Headache (principal); I10 Essential (primary) hypertension; E03.9 Hypothyroidism, unspecified; H40.9 Unspecified glaucoma; D64.9 Anemia, unspecified; H53.8 Other visual disturbances
CPT/HCPCS: 70551; 71010; 80048; 80053; 80061; 82270; 82570; 82728; 83036; 83540; 83735; 84075; 84100; 84155; 84156; 84165; 84166; 84443; 84703; 85025; 85610; 85651; 85730; 86140; 86320; 96374; 96375; J0780; J1200; J1644; J1885; J2270; J2405

== ENCOUNTER 2017-04-29 07:23 | Day surgery (SDC) | payer OTHER ==
[2017-04-29] VITALS (12 sets, daily range): BP systolic 105–133; BP diastolic 62–80; PULSE 64–74; RESP 10–18; Ht 154.9 cm; Wt 58.0 kg
[~2017-04-29] VITALS: Ht 154.9 cm; Wt 58.0 kg
[~2017-04-29 07:23] MED LIST changes: -ABCC1C PO; -ACET500T98 PO; -AUG875 PO; -CEPH-443 PO; +CPR3OO3.5 BOTH EYES; -DOCU240C55 PO; +EPHEDrine SULFATE 50 MG/5 ML SYG ONE; +ERYT1OIN6 BOTH EYES; -FAMO-96 PO; -FLUT9.9S NASAL; +HYDR-3498 PO; -HYDR-906 PO; -IBUP200C PO; +KETO5DRO21 BOTH EYES; -MECL12.574 PO; -MUPI22OI2 TOP; -NAPR-260 PO; +OFLO5DRO46 BOTH EYES; -OMEP20CA16 PO; +TRAM1TAB51 PO; -TRAM50TA2 PO; -UDROBDM PO; +[UNRECOGNIZED DRUG - CODE] BOTH EYES
[2017-04-29] MEDS ORDERED: DICL2.5D11 BOTH EYES (08:22)
[2017-04-29] MEDS ORDERED: HYDR-906 PO (08:22)
[2017-04-29] MEDS ORDERED: POLYMYXIN/BACITRACIN 1L IRRIG ONE (10:31)
[2017-04-29] MEDS ORDERED: PROPOFOL 20 ML ONE (10:36)
[2017-04-29] MEDS ORDERED: FENTAnyl 50 MCG/ML VIAL ONE ×2 (10:36→11:22)
[2017-04-29] MEDS ORDERED: MIDAZOLAM 1 MG/ML 2 ML INJ ONE (10:36)
[2017-04-29] MEDS ORDERED: CEFAZOLIN 1 GM INJ ONE (10:36)
--- NOTE | 2017-04-29 10:39 | HPN ---
Date/Time of Note Date/Time of Note DATE: 04/29/17 TIME: 10:39 Interval H&P Admission Note Pt. seen H&P reviewed: No system changes NADIA MCGARRY MD Apr 29, 2017 10:39
[2017-04-29] MEDS ORDERED: DEXAMETHASONE 4 MG/ML 1 ML INJ ONE (11:04)
[2017-04-29] MEDS ORDERED: METOCLOPRAMIDE 10 MG INJ ONE (11:04)
[2017-04-29] MEDS ORDERED: ONDANSETRON 4 MG INJ ONE (11:04)
[2017-04-29] MEDS ORDERED: EPHEDrine SULFATE 50 MG/5 ML SYG IV PRN (11:30)
[2017-04-29] MEDS ORDERED: FENTAnyl 50 MCG/ML VIAL IV PRN ×3 (11:30)
[2017-04-29] MEDS ORDERED: LABETALOL HCL 20MG INJ IV PRN (11:30)
[2017-04-29] MEDS ORDERED: hydrALAzine 20 MG INJ IV PRN (11:30)
[2017-04-29] MEDS ORDERED: morphine (1 MG/ML) 10ML SYRINGE IV PRN ×3 (11:30)
[2017-04-29] MEDS ORDERED: MEPERIDINE 25 MG INJ IV PRN (11:30)
[2017-04-29] MEDS ORDERED: ONDANSETRON 4 MG INJ IV PRN (11:30)
[2017-04-29] MEDS ORDERED: DIPHENHYDRAMINE 50 MG INJ IV PRN (11:30)
[2017-04-29] MEDS ORDERED: SUGAMMADEX SODIUM 200 MG/2 ML VIAL IV ONE (11:36)
--- NOTE | 2017-04-29 12:05 | OPR ---
Date/Time of Note Date/Time of Note DATE: 04/29/17 TIME: 12:03 Operative Report Procedure Date: Apr 29, 2017 Preoperative Diagnosis Headaches Postoperative Diagnosis Same Operation Performed Right temporal artery biopsy Left temporal artery biopsy Surgeon: NADIA MCGARRY MD Anesthesia Type: general Estimated Blood Loss: minimal Specimen: none Grafts/Implants: none Complications: no Pt Condition Post Procedure: stable Disposition: PACU Indications Headaches Operative\Procedure Findings Dictated Procedure Description Patient was taking taken to the operating room after induction of anesthesia prepped and draped in usual sterile fashion timeout was called antibiotics was given I made a 1 cm incision in the right temporal area incision was taken down to subcutaneous tissue temporal artery was artery was identified a 2 cm portion of it was removed ligated using 3-0 silk sutures Wound was irrigated using saline solution and closed using interrupted 3-0 Vicryl suture the same operation was done on the left side left temporal artery was also biopsied wound was closed in a similar fashion Lateral temporal artery biopsies were done NADIA MCGARRY MD Apr 29, 2017 12:05
--- NOTE | 2017-04-30 11:12 | RADRPT ---
Vent Rate: 61 bpm RR Interval: 0 msec [place] Interval: 182 msec QRS Duration: 88 msec QT Interval: 428 msec QTC Interval: 430 msec P-R-T Victor: 80 - 91 - 75 degrees Normal sinus rhythm Rightward axis Borderline ECG Electronically Signed By: Srinivas Diaz [id number]
== END 2017-04-29 13:28 | disposition home or self-care (01) ==
LOC: SDS 07:23
PROVIDERS: ATTEND Thoracic Surgery (Cardiothoracic Vascular Surgery)
DX: R51 Headache (principal)
CPT/HCPCS: 37609; 88305; 93005; J0690; J1100; J2175; J2250; J2405; J2765; J3010; Z7512; Z7610

== ENCOUNTER 2017-07-18 08:49 | Emergency (ER) | payer OTHER ==
[~2017-07-18] VITALS: Ht 154.9 cm; Wt 58.6 kg
[~2017-07-18 08:49] MED LIST changes: -CPR3OO3.5 BOTH EYES; +DICL2.5D11 BOTH EYES; -EPHEDrine SULFATE 50 MG/5 ML SYG ONE; -HYDR-3498 PO; +HYDR-906 PO; -KETO5DRO21 BOTH EYES; -OFLO5DRO46 BOTH EYES; -TRAM1TAB51 PO; -[UNRECOGNIZED DRUG - CODE] BOTH EYES
[2017-07-18 08:51] VITALS: Ht 154.9 cm; Wt 58.6 kg
--- NOTE | 2017-07-18 09:28 | RADRPT ---
PROCEDURE: XR Chest. CLINICAL INDICATION: cough TECHNIQUE: Single frontal view of the chest was obtained COMPARISON: 07/05/16 FINDINGS: The heart and mediastinum are within normal limits. The lungs are clear. There is no pleural effusion or pneumothorax. RPTAT: AA IMPRESSION: No acute disease. .Salazar Franks MD, MD Date Time Electronically viewed and signed by .Salazar Franks MD, on 07/18/2017 09:28 .S/
[2017-07-18] MEDS ORDERED: AZIT250T94 PO (09:46)
[2017-07-18] MEDS ORDERED: CETI10CA PO (09:46)
[2017-07-18] MEDS ORDERED: BENZ100C70 PO (09:46)
--- NOTE | 2017-07-18 10:00 | ERD ---
ER Documentation Chief Complaint Chief Complaint pt bib self with c/o cough for approx 3 days HPI 56-year-old female was recently diagnosed with leukemia presents with a cough for 3 days. She reports watering to the eyes, congestion, left-sided ear pain. Patient was seen by ENT and was given a prescription for fluticasone which has not been helping. She reports a dry cough, she does not endorse any hemoptysis, chest pain, shortness breath. She denies fevers or chills. No recent travel. ROS All systems reviewed and are negative except as per history of present illness. Medications Home Meds Active Scripts Cetirizine Hcl* (Zyrtec*) 10 Mg Capsule, 10 MG PO DAILY, #10 TAB.CHEW Prov:KRISS CHAUDHARI PA-C 07/18/17 Benzonatate* (Tessalon Perle*) 100 Mg Capsule, 100 MG PO Q8H Y for COUGH, #30 CAP Prov:KRISS CHAUDHARI PA-C 07/18/17 Azithromycin* (Zithromax*) 250 Mg Tablet, 250 MG PO .ZPACK DIRECTED, #6 TAB TAKE 500 MG (2 TABS) THE FIRST DAY THEN 250 MG (1 TAB) DAYS 2-5 Prov:KRISS CHAUDHARI PA-C 07/18/17 Gabapentin* (Neurontin*) 100 Mg Capsule, 100 MG PO TID, #90 CAP Prov:JAYLEN HURTADO 03/18/17 Reported Medications Diclofenac Sodium* (Diclofenac Oph*) 2.5 Ml Drops, 1 DROP BOTH EYES QID, #1 EA 04/29/17 Hydrocodone/Acetaminophen ([place] 5-325 Tablet) 1 Each Tablet, 1 EACH PO Q6 Y for PAIN, TAB 04/29/17 Erythromycin (Erythromycin Opth) 3.5 Gm Oint..gm., 1 APPLIC BOTH EYES BID, #1 TUB 04/14/17 Allergies Allergies: Coded Allergies: No Known Allergy (Unverified , 07/18/17) PMhx/Soc History of Surgery: Yes (bilateral breast implants) Anesthesia Reaction: No Hx Neurological Disorder: No Hx Respiratory Disorders: No Hx Cardiac Disorders: No Hx Psychiatric Problems: No Hx Miscellaneous Medical Probl: No Hx Alcohol Use: No Hx Substance Use: No Hx Tobacco Use: No Physical Exam Vitals Vital Signs Date Time Temp Pulse Resp B/P Pulse Ox O2 Delivery O2 Flow Rate FiO2 12/2/17 08:51 98.2 82 16 155/84 99 Physical Exam General: Well-developed, well-nourished. The patient appears in no acute distress. HEENT: Head is normocephalic, atraumatic. No scleral icterus. Pupils are equal , round, and reactive. Oral mucous membranes are moist. No pharyngeal erythema. TM is bulging on the left side without erythema, no drainage, perforation. The right ear is normal. Neck: Supple. Nontender. Lungs: Clear to auscultation. Normal air movement. Heart: Regular rate and rhythm. S1 and S2 are normal. No murmurs, gallops, or rubs. Abdomen: Soft, nontender, nondistended. Bowel sounds are normoactive. Extremities: No clubbing or cyanosis. Normal pulses. Moving extremities x 4. No weakness. Neurologic: Alert and oriented 3. No focal deficits. Skin: Normal turgor. No rash or lesions. Results 24 hrs DIAGNOSTIC IMAGING REPORT Patient: JACK COPPOLA : 1960 Age: 56 Sex: F MR #: [id number] DOS: 07/18/17 0906 Ordering MD: KRISS CHAUDHARI PA-C Location: [facility] Room/Bed: PROCEDURE: XR Chest. CLINICAL INDICATION: cough TECHNIQUE: Single frontal view of the chest was obtained COMPARISON: 07/05/16 FINDINGS: The heart and mediastinum are within normal limits. The lungs are clear. There is no pleural effusion or pneumothorax. RPTAT: AA IMPRESSION: No acute disease. .Salazar Franks MD, MD Date Time Electronically viewed and signed by .Salazar Franks MD, MD on 07/18/2017 09: 28 .S/ CC: KRISS CHAUDHARI PA-C Procedures/[facility] The patient is a 56-year-old female who comes in with an acute upper respiratory infection, his acute bronchitis. This patient was recently diagnosed with leukemia, she has had a cough for a few days and I performed a chest x-ray here that was normal. The patient will be covered for bronchitis given her history, but I believe the patient is well-appearing, without signs of sepsis, and stable for outpatient management. The patient has a differential diagnosis of a viral upper respiratory infection, bacterial upper respiratory infection, bronchitis, pneumonia, pharyngitis, laryngitis, epiglottitis, croup, pneumonia. Patient has a normal pulmonary examination, clear breath sounds, normal pulse oximetry, with no corrective measures needed at this time. Fluids, rest, antipyretics were encouraged. Departure Diagnosis: Primary Impression: Cough Condition: Good Patient Instructions: Bronchitis, Antiobiotic Treatment (Adult) Referrals: KEELEY VIZCARRA (PCP) KRISS CHAUDHARI PA-C Jul 18, 2017 10:00
== END 2017-07-18 09:50 | disposition home or self-care (01) ==
LOC: FTE 08:49
DX: R05 Cough (principal)
CPT/HCPCS: 71010; Z7502

== ENCOUNTER 2017-09-02 06:46 | Day surgery (SDC) | END 2017-09-02 13:35 | disposition home or self-care (01) ==

== ENCOUNTER 2017-12-24 14:03 | Inpatient (IN) | END 2017-12-29 12:20 | disposition home or self-care (01) | DRG 394 ==

== ENCOUNTER 2018-01-01 13:42 | Outpatient (CLI) | END 2018-01-01 16:42 | disposition home or self-care (01) ==

== ENCOUNTER 2018-01-06 18:17 | Emergency (ER) | END 2018-01-07 00:56 | disposition home or self-care (01) ==

== ENCOUNTER 2018-01-15 13:31 | Outpatient (CLI) | END 2018-01-15 16:41 | disposition home or self-care (01) ==

== ENCOUNTER 2018-01-26 16:34 | Emergency (ER) | END 2018-01-26 21:07 | disposition home or self-care (01) ==

== ENCOUNTER 2018-04-02 14:29 | Emergency (ER) | END 2018-04-02 17:45 | disposition home or self-care (01) ==

== ENCOUNTER 2018-05-07 17:11 | Emergency (ER) | END 2018-05-08 03:38 | disposition home or self-care (01) ==

== ENCOUNTER 2018-05-22 08:02 | Emergency (ER) | END 2018-05-22 11:08 | disposition home or self-care (01) ==

== ENCOUNTER 2018-07-09 07:42 | Emergency (ER) | END 2018-07-09 09:52 | disposition home or self-care (01) ==

== ENCOUNTER 2018-09-14 17:38 | Emergency (ER) | payer OTHER ==
[~2018-09-14] VITALS: Ht 154.9 cm; Wt 60.0 kg
[~2018-09-14 17:38] MED LIST changes: +ACET325T33 PO; +ALBU18HF INHALATION; +AZIT250T PO; +BENZ-5 PO; -DICL2.5D11 BOTH EYES; +DOCU-159 PO; +ERGO500013 PO; -ERYT1OIN6 BOTH EYES; +FAMO-96 PO; +FER325 PO; +FLAX1CAP7 PO; +FLUT9.9S NASAL; -GABA100C PO; +GABA300C16 PO; +HYDR-3980 PO; -HYDR-906 PO; +LEVO50TA7 PO; +ONDA4TAB8 PO; +PANT40TA3 PO; +PHEN177S43 MT; +SUCR1TAB35 PO
[2018-09-14 17:44] VITALS: Ht 154.9 cm; Wt 60.0 kg
--- NOTE | 2018-09-14 21:06 | ERD ---
ER Documentation Chief Complaint Chief Complaint Dry/ sore throat with new onset of hematemesis; hx of blood CA HPI This is a 58-year-old woman complaining of sore throat similar to multiple previous episodes. She has been using [place] at home and her PMD prescribed Augmentin yesterday which she has been using. She has had episodes like this in the past and usually is prescribed antibiotics. She states her analgesics are not working and she would like a shot for pain control. She denies fevers or chills, no cough, no vomiting or diarrhea, no headache or blurry vision. ROS All systems reviewed and are negative except as per history of present illness. Medications Home Meds Reported Medications Omeprazole* (Omeprazole*) 20 Mg Capsule.dr, 20 MG PO DAILY, #30 CAP 09/14/18 Levothyroxine Sodium* (Levothyroxine Sodium*) 75 Mcg Tablet, 75 MCG PO BEFORE BREAKFAST, #30 TAB 09/14/18 Ergocalciferol (Vitamin D2) (VITAMIN D2) 50,000 Unit Capsule, 52316 UNIT PO Q7D, CAP 09/14/18 Docusate Sodium* (Colace*) 100 Mg Capsule, 100 MG PO BID, #60 CAP 09/14/18 Discontinued Reported Medications Flaxseed/Evening Prim/Bilberry (Retaine Flax Softgel) 1 Each Capsule, 1 EACH PO, CAP 05/08/18 Benzonatate* (Benzonatate*) 100 Mg Capsule, 100 MG PO TID PRN for COUGH, CAP 05/08/18 Albuterol Sulfate* (Ventolin HFA*) 18 Gm Hfa.aer.ad, 2 PUFF INHALATION Q4H, #1 INHALER 05/08/18 Docusate Sodium* (Docusate Sodium*) 100 Mg Capsule, 100 MG PO BID, #60 CAP 05/08/18 Levothyroxine Sodium* (Levothyroxine Sodium*) 50 Mcg Tablet, 50 MCG PO BEFORE BREAKFAST, #30 TAB 05/08/18 Ergocalciferol (Vitamin D2) (VITAMIN D2) 50,000 Unit Capsule, 75491 UNIT PO QMON, CAP 05/08/18 Ferrous Sulfate* (Ferrous Sulfate*) 325 Mg Tabec, 325 MG PO DAILY, TAB 05/08/18 Hydrocodone/Acetaminophen ([place] 10-325 Tablet) 1 Each Tablet, 1 EACH PO, TAB 05/08/18 Sucralfate (Carafate) 1 Gm Tablet, 1 GM PO TID, TAB 05/08/18 Gabapentin* (Gabapentin*) 300 Mg Capsule, 300 MG PO BID, #60 CAP 05/08/18 Discontinued Scripts Acetaminophen* (Tylenol*) 325 Mg Tablet, 2 TAB PO Q6 PRN for PAIN AND OR ELEVATED TEMP, #30 TAB Prov:HARI HO PA-C 07/09/18 Phenol* (Chloraseptic* [place]) 177 Ml [place].pump, 2 SPRAY MT Q2H PRN for SORE THROAT, #1 BOTTLE Prov:ZION PILLAI PA-C 05/22/18 Azithromycin* (Zithromax*) 250 Mg Tablet, 250 MG PO .ZPACK DIRECTED, #6 TAB TAKE 500 MG (2 TABS) THE FIRST DAY THEN 250 MG (1 TAB) DAYS 2-5 Prov:ZION PILLAI PA-C 05/22/18 Fluticasone Propionate (Flonase Allergy Relief) 9.9 Ml [place].susp, 2 SPRAY NASAL DAILY, #1 BOTTLE TO EACH NOSTRIL Prov:ZION PILLAI PA-C 05/22/18 Ondansetron Hcl* (Zofran*) 4 Mg Tablet, 4 MG PO Q8H PRN for NAUSEA AND/OR VOMITING, #20 TAB Prov:JENNA AUGUSTE MD 05/08/18 Famotidine* (Pepcid*) 20 Mg Tablet, 20 MG PO BID for 14 Days, TAB Prov:JENNA AUGUSTE MD 05/08/18 Pantoprazole* (Protonix*) 40 Mg Tablet.dr, 40 MG PO DAILY, #20 TAB Prov:DINA MAURICE MD 04/02/18 Allergies Allergies: Coded Allergies: No Known Allergy (Unverified , 09/14/18) PMhx/Soc Waldenstrom's macroglobulinemia with intermittent chemotherapy History of Surgery: Yes (EGD and gastric biopsy) Anesthesia Reaction: No Hx Neurological Disorder: No Hx Respiratory Disorders: No Hx Cardiac Disorders: No Hx Psychiatric Problems: No Hx Miscellaneous Medical Probl: Yes (lymphoma, gastritis) Hx Alcohol Use: No Hx Substance Use: No Hx Tobacco Use: No FmHx Family History: No diabetes Physical Exam Vitals Vital Signs Date Temp Pulse Resp B/P (MAP) Pulse Ox O2 O2 Flow FiO2 Time Delivery Rate 09/14/18 97.8 69 19 151/81 96 Room Air 21:48 (104) 09/14/18 70 20 156/81 99 Room Air 21:15 (106) 09/14/18 98.3 82 19 137/85 98 17:44 (102) Physical Exam Const: Anxious, well-hydrated, afebrile HEENT: Pharynx appears normal there is no erythema or exudates, uvula is midline, no submandibular induration, pupils equal round reactive to light, moist mucous membranes, pink conjunctiva Resp: Clear to auscultation bilaterally Cardio: Regular rate and rhythm, no murmurs Abd: Soft, non tender, non distended. Skin: No petechiae or rashes Back: No midline or flank tenderness Ext: No cyanosis, or edema Neur: Awake and alert x3, no focal deficits or facial asymmetry Psych: Anxious Results 24 hrs Current Medications Medications Dose Sig/Macario Start Time Status Last (Trade) Ordered Route PRN Stop Time Admin Dose Reason Admin 40 ml ONCE STAT 09/14/18 DC 09/14/18 Miscellaneous PO 21:20 21:29 Medication 09/14/18 21:24 (Gi Cocktail (2)) Ketorolac 30 mg ONCE STAT 09/14/18 DC 09/14/18 Tromethamine IM 21:20 21:29 (Toradol) 09/14/18 21:24 Procedures/MDM I administered Toradol 30 mg IM x1 I reviewed her past medical history it seems she has been worked up for throat discomfort in the past and swabs have been unrevealing. She has essentially normal examination here in the ER except for obvious anxiety. Differential diagnoses considered, included but not limited to acute coronary syndrome, pulmonary embolism, aortic dissection, abdominal aortic aneurysm, sepsis, stroke, meningitis, encephalitis, pneumonia, appendicitis, cholecystitis, bowel obstruction, pyelonephritis, nephrolithiasis, cystitis, as well as metabolic, hematologic, and electrolyte abnormalities. As well as abscess, cellulitis, fractures, and dislocations. Patient feels much better at this time, and vital signs are normal, symptoms have improved. I did give strict instructions to return to the ED if symptoms continue or worsen, patient will otherwise follow-up with primary care physician. Patient understood instructions and agreed to plan. Disclaimer: Inadvertent spelling and grammatical errors are likely due to EHR/dictation software use and do not reflect on the overall quality of patient care. Also, please note that the electronic time recorded on this note does not necessarily reflect the actual time of the patient encounter. Departure Diagnosis: Primary Impression: Sore throat Additional Impression: Globus hystericus Condition: Good JADEN LAI MD Sep 14, 2018 21:06
[2018-09-14] MEDS ORDERED: KETOROLAC 30 MG INJ IM STA (21:20)
[2018-09-14] MEDS ORDERED: LIDOCAINE/MYLANTA 40 ML BTL PO STA (21:20)
[2018-09-14] MEDS ORDERED: DOCU-144 PO (21:21)
[2018-09-14] MEDS ORDERED: ERGO500013 PO (21:21)
[2018-09-14] MEDS ORDERED: LEVO75TA5 PO (21:22)
[2018-09-14] MEDS ORDERED: OMEP20CA16 PO (21:22)
[2018-09-14 21:48] VITALS: BP 151/81; PULSE 69; RESP 19
== END 2018-09-14 21:48 | disposition home or self-care (01) ==
LOC: E/R 17:38
DX: J02.9 Acute pharyngitis, unspecified (principal); F45.8 Other somatoform disorders; C88.0 Waldenstrom macroglobulinemia; Z85.6 Personal history of leukemia
CPT/HCPCS: 96372; J1885; Z7502; Z7610

== ENCOUNTER 2019-02-05 16:37 | Emergency (ER) | payer SELFPAY ==
[~2019-02-05] VITALS: Ht 160 cm; Wt 61.0 kg
[~2019-02-05 16:37] MED LIST changes: -ACET325T33 PO; -ALBU18HF INHALATION; -AZIT250T PO; -BENZ-5 PO; +DOCU-144 PO; -DOCU-159 PO; -FAMO-96 PO; -FER325 PO; -FLAX1CAP7 PO; -FLUT9.9S NASAL; -GABA300C16 PO; -HYDR-3980 PO; -LEVO50TA7 PO; +LEVO75TA5 PO; +OMEP20CA16 PO; -ONDA4TAB8 PO; -PANT40TA3 PO; -PHEN177S43 MT; -SUCR1TAB35 PO
[2019-02-05 16:41] VITALS: BP 164/79; PULSE 92; RESP 16; Ht 160 cm; Wt 61.0 kg
== END 2019-02-05 17:31 | disposition left against medical advice (07) ==
LOC: E/R 16:37
DX: Z53.21 Procedure and treatment not carried out due to patient leaving prior to being seen by health care provider (principal)

== ENCOUNTER 2019-02-21 09:47 | Emergency (ER) | payer OTHER ==
[~2019-02-21] VITALS: Ht 167.6 cm; Wt 61.4 kg
[2019-02-21 09:49] VITALS: BP 137/84; PULSE 81; RESP 18; Ht 167.6 cm; Wt 61.4 kg
[2019-02-21] MEDS ORDERED: LIDOCAINE 1% (MDV) 20 ML INJ SC ONE (10:30)
[2019-02-21] MEDS ORDERED: CLINDAMYCIN 300 MG CAP PO ONE (10:30)
[2019-02-21] MEDS ORDERED: CEFTRIAXONE 250 MG INJ IM ONE (10:30)
[2019-02-21] MEDS ORDERED: CIPROFLOXACIN 500 MG TAB PO ONE (11:00)
[2019-02-21] MEDS ORDERED: CIPR500T4 PO (11:46)
--- NOTE | 2019-02-21 11:47 | ERD ---
ER Documentation Chief Complaint Chief Complaint left outer ear, red, swollen & painful x1 day HPI 58-year-old female presented to ED for swollen left ear x1 day. Patient states this is never happened to her before. Patient also states that she is noticed her gums have been bleeding more than usual. Patient is currently under chemo for gastric cancer. Patient is presenting afebrile and denies any nausea vomiting diarrhea fever chills increased headache loss of hearing. Patient denies any allergies to medications and states that her ear is very painful. Patient rates the pain 7 out of 10 ROS All systems reviewed and are negative except as per history of present illness. Medications Home Meds Active Scripts Ciprofloxacin Hcl* (Ciprofloxacin Hcl*) 500 Mg Tablet, 500 MG PO BID for 10 Days, TAB Prov:ÁNGEL CHANDRA PA-C 02/21/19 Reported Medications Omeprazole* (Omeprazole*) 20 Mg Capsule.dr, 20 MG PO DAILY, #30 CAP 09/14/18 Levothyroxine Sodium* (Levothyroxine Sodium*) 75 Mcg Tablet, 75 MCG PO BEFORE BREAKFAST, #30 TAB 09/14/18 Ergocalciferol (Vitamin D2) (VITAMIN D2) 50,000 Unit Capsule, 33806 UNIT PO Q7D, CAP 09/14/18 Docusate Sodium* (Colace*) 100 Mg Capsule, 100 MG PO BID, #60 CAP 09/14/18 Allergies Allergies: Coded Allergies: No Known Allergy (Unverified , 09/14/18) PMhx/Soc History of Surgery: Yes (EGD and gastric biopsy) Anesthesia Reaction: No Hx Neurological Disorder: No Hx Respiratory Disorders: No Hx Cardiac Disorders: No Hx Psychiatric Problems: No Hx Miscellaneous Medical Probl: Yes (lymphoma, gastritis) Hx Alcohol Use: No Hx Substance Use: No Hx Tobacco Use: No Smoking Status: Never smoker FmHx Family History: No diabetes, No coronary disease, No other Physical Exam Vitals Vital Signs Date Temp Pulse Resp B/P (MAP) Pulse Ox O2 O2 Flow FiO2 Time Delivery Rate 02/21/19 98.8 81 18 137/84 98 09:49 (101) Physical Exam Const: No acute distress Head: Atraumatic Eyes: Normal Conjunctiva ENT: Left outer ear is swollen red and painful to the touch no fluctuant mass palpated Neck: Full range of motion. No meningismus. Resp: Clear to auscultation bilaterally Cardio: Regular rate and rhythm, no murmurs Abd: Soft, non tender, non distended. Normal bowel sounds Skin: No petechiae or rashes Result Diagram: 02/21/19 1031 Results 24 hrs Laboratory Tests Test 02/21/19 10:31 White Blood Count 6.7 10^3/ul Red Blood Count 4.28 10^6/ul Hemoglobin 12.4 g/dl Hematocrit 37.4 % Mean Corpuscular Volume 87.4 fl Mean Corpuscular Hemoglobin 29.0 pg Mean Corpuscular Hemoglobin Concent 33.2 g/dl Red Cell Distribution Width 12.6 % Platelet Count 318 10^3/UL Mean Platelet Volume 10.4 fl Immature Granulocytes % 0.300 % Neutrophils % 80.1 % Lymphocytes % 11.7 % Monocytes % 6.3 % Eosinophils % 1.3 % Basophils % 0.3 % Nucleated Red Blood Cells % 0.0 /100WBC Immature Granulocytes # 0.020 10^3/ul Neutrophils # 5.3 10^3/ul Lymphocytes # 0.8 10^3/ul Monocytes # 0.4 10^3/ul Eosinophils # 0.1 10^3/ul Basophils # 0.0 10^3/ul Nucleated Red Blood Cells # 0.0 10^3/ul Prothrombin Time 12.0 Sec Prothrombin Time Ratio 0.9 INR International Normalized Ratio 0.88 Activated Partial Thromboplast Time 26.9 Sec Current Medications Medications Dose Sig/Macario Start Time Status Last (Trade) Ordered Route PRN Stop Time Admin Dose Reason Admin Ceftriaxone 250 mg ONCE ONCE 02/21/19 DC Sodium IM 10:30 02/21/19 (Rocephin) 10:32 Lidocaine 20 ml ONCE ONCE 02/21/19 DC (Xylocaine SC 10:30 02/21/19 1% (Mdv) 20 10:32 ml) Clindamycin 300 mg ONCE ONCE 02/21/19 Cancel HCl PO 10:30 02/21/19 (Cleocin) 10:31 500 mg ONCE ONCE 02/21/19 DC 02/21/19 Ciprofloxacin PO 11:00 02/21/19 10:38 (Cipro) 11:01 Procedures/MDM Medications given in ER: Ciprofloxacin Patient tolerated medication well with no adverse reactions. Patient reported improvement in pain. Medical decision making: Patient is 58-year-old female presented to ED for left outer ear swelling x1 day. Patient also mentioned that her gums have been bleeding more than usual. Patient has a history of gastric cancer and is currently under chemo treatment. Physical exam noted a nonfluctuant but swollen left tender outer ear. The ear canal was not erythematous and the tympanic membrane was still intact. Patient is afebrile range. Patient's lab results were unremarkable and showed no sign for decrease PT, PTT, leukocytosis, and anemia. Patient was given her first dose of Cipro in the ED and tolerated it well. At this time I have low suspicion for sepsis, mastoiditis, TIA, thrombocytopenia, bleeding disorder, sepsis. The patient was advised that she needs to follow-up with her primary care provider in 1 to 2 days regarding this visit. Advised patient if symptoms worsen she can return to ER immediately. Patient had no further questions upon discharge and was given prescription for Ciprofloxacillin. She is in agreement to the treatment plan Prescription for home: Ciprofloxacillin I have discussed with the patient proper use and common side effects to expert with the medication . I advised the patient/family to speak with the pharm acist dispensing the medication to be advised of any potential drug interactions with other medication or supplements they may be taking. Discharge: At this time, patient is stable for discharge and outpatient management. I have instructed the patient to follow-up with his\her primary care physician in 1 to 2 days. I have discussed with the patient the possibility of needing to see a specialist for further work-up and imaging studies if symptoms persist. I have instructed the patient to promptly return to the ER for any new or worsening symptoms including increased pain, fever, nausea, vomiting, weakness or LOC. The patient and\or family expressed understanding of and agreement with this plan. All questions were answered. Home care instructions were provided. Disclaimer: Inadvertent spelling and grammatical errors are likely due to EHR\dictation software use and do not reflect on the overall quality of patient care. Also, please note that the electronic time recorded on the note does not necessarily reflect the actual time of the patient encounter. Departure Diagnosis: Primary Impression: Left ear pain Additional Impression: Cellulitis Site of cellulitis: other site Qualified Codes: L03.818 - Cellulitis of other sites Condition: Stable Patient Instructions: Cellulitis Referrals: COMM[facility]ITY CL[facility] YOU HAVE RECEIVED A MEDICAL SCREENING EXAM AND THE RESULTS INDICATE THAT YOU DO NOT HAVE A CONDITION THAT REQUIRES URGENT TREATMENT IN THE EMERGENCY DEPARTMENT. FURTHER EVALUATION AND TREATMENT OF YOUR CONDITION CAN WAIT UNTIL YOU ARE SEEN IN YOUR DOCTORS OFFICE WITHIN THE NEXT 1-2 DAYS. IT IS YOUR RESPONSIBILITY TO MAKE AN APPOINTMENT FOR FOLOW-UP CARE. IF YOU HAVE A PRIMARY DOCTOR --you should call your primary doctor and schedule an appointment IF YOU DO NOT HAVE A PRIMARY DOCTOR YOU CAN CALL OUR PHYSICIAN REFERRAL HOTLINE AT IF YOU CAN NOT AFFORD TO SEE A PHYSICIAN YOU CAN CHOSE FROM THE FOLLOWING [facility] [address] [facility] [address] [facility] [facility] [address] [facility] [address] [facility] [address] [facility]. [facility]. [address] [facility] [facility] YOU HAVE RECEIVED A MEDICAL SCREENING EXAM AND THE RESULTS INDICATE THAT YOU DO NOT HAVE A CONDITION THAT REQUIRES URGENT TREATMENT IN THE EMERGENCY DEPARTMENT. FURTHER EVALUATION AND TREATMENT OF YOUR CONDITION CAN WAIT UNTIL YOU ARE SEEN IN YOUR DOCTORS OFFICE WITHIN THE NEXT 1-2 DAYS. IT IS YOUR RESPONSIBILITY TO MAKE AN APPOINTMENT FOR FOLOW-UP CARE. IF YOU HAVE A PRIMARY DOCTOR --you should call your primary doctor and schedule and appointment IF YOU DO NOT HAVE A PRIMARY DOCTOR YOU CAN CALL OUR PHYSICIAN REFERRAL HOTLINE AT . IF YOU CAN NOT AFFORD TO SEE A PHYSICIAN YOU CAN CHOSE FROM THE FOLLOWING [facility] INSTITUTIONS: [facility] [address] [place] [address] [facility] [address] [place] [address] [facility] [address] [place] [address] Additional Instructions: Llame al doctor MAANA y micki acacia SIGRID PARA DENTRO DE 1-2 NATARAJAN.Dgale a la secretaria que nosotros le instruimos hacer esta sigrid.Avise o llame si buckley condicin se empeora antes de la sigrid. Regresa aqui si peor o no mejor. ÁNGEL CHANDRA PA-C Feb 21, 2019 11:47
== END 2019-02-21 11:59 | disposition home or self-care (01) ==
LOC: FTE 09:47
DX: H92.02 Otalgia, left ear (principal); L03.818 Cellulitis of other sites
CPT/HCPCS: 36415; 85025; 85610; 85730; J0696; Z7502; Z7610; 99283

== ENCOUNTER → 2019-03-04 | Emergency (ER) | payer OTHER ==
[~2019-03-04] VITALS: Ht 152.4 cm; Wt 62.0 kg
[~2019-03-04] MED LIST changes: +ACET325T33 PO; +ACETAMINOPHEN 325 MG TAB PO ONE; +AMOX500C2 PO; +AZIT250T PO; +CIPR500T4 PO; +IPRATROPIUM (NEB) 0.5 MG/2.5 ML AMP HHN ONE; +PROM5SYR2 PO
[2019-03-04 16:49] VITALS: BP 203/77; Ht 152.4 cm; Wt 62.0 kg
--- NOTE | 2019-03-04 18:06 | ERD ---
ER Documentation Chief Complaint Chief Complaint PRODUCTIVE COUGH WITH VOMITING X 3 DAYS HPI 58-year-old female, with history of lymphoma, currently on chemotherapy, presents to the emergency department, complaining of 2 days with worsening of cough, productive, constant. The patient states that 2 family members were diagnosed with pneumonia. She denies fevers but reports mild chills without shortness of breath. ROS All systems reviewed and are negative except as per history of present illness. Medications Home Meds Active Scripts Ciprofloxacin Hcl* (Ciprofloxacin Hcl*) 500 Mg Tablet, 500 MG PO BID for 10 Days, TAB Prov:ÁNGEL CHANDRA PA-C 02/21/19 Reported Medications Omeprazole* (Omeprazole*) 20 Mg Capsule.dr, 20 MG PO DAILY, #30 CAP 09/14/18 Levothyroxine Sodium* (Levothyroxine Sodium*) 75 Mcg Tablet, 75 MCG PO BEFORE BREAKFAST, #30 TAB 09/14/18 Ergocalciferol (Vitamin D2) (VITAMIN D2) 50,000 Unit Capsule, 11103 UNIT PO Q7D, CAP 09/14/18 Docusate Sodium* (Colace*) 100 Mg Capsule, 100 MG PO BID, #60 CAP 09/14/18 Allergies Allergies: Coded Allergies: No Known Allergy (Unverified , 09/14/18) PMhx/Soc History of Surgery: Yes (EGD and gastric biopsy) Anesthesia Reaction: No Hx Neurological Disorder: No Hx Respiratory Disorders: No Hx Cardiac Disorders: No Hx Psychiatric Problems: No Hx Miscellaneous Medical Probl: Yes (lymphoma, gastritis) Hx Alcohol Use: No Hx Substance Use: No Hx Tobacco Use: No FmHx Family History: No diabetes, No coronary disease Physical Exam Vitals Vital Signs Date Temp Pulse Resp B/P (MAP) Pulse Ox O2 O2 Flow FiO2 Time Delivery Rate 03/04/19 85 20 98 Room Air 18:51 03/04/19 89 20 97 21 18:42 03/04/19 99.5 101 18 203/77 96 16:49 (119) Physical Exam Patient alert, hydrated, no distress HEENT: PERRLA, EOMI, injected sclerae, runny nose, canals clear, erythematous tympanic membranes, Erythematous oropharynx. NECK: Supple, No lymphadenopathy. Full ROM without pain or tenderness. HEART: RRR, no rubs, murmurs, clicks or gallops. LUNGS: Scattered rhonchi to auscultation. ABDOMEN: Soft, non-tender without masses or hepatosplenomegaly. EXTREMITIES: No edema bilaterally. BACK: Full ROM, no deformity, normal back exam NEURO: Cranial nerves grossly intact, no motor or sensory deficit Results 24 hrs Current Medications Medications Dose Sig/Macario Start Time Status Last (Trade) Ordered Route PRN Stop Time Admin Dose Reason Admin Ipratropium 0.5 mg ONCE ONCE 03/04/19 DC 03/04/19 [place] [facility] 18:30 18:23 (Atrovent 03/04/19 18:31 0.02% (Neb)) Procedures/MDM At the time of discharge, patient with nontoxic appearance, vital signs stable, no respiratory distress. Differential diagnosis include but not limited to: upper vs lower respiratory infection bacterial/viral/fungal. Asthma, COPD, pneumonitis, allergies, GERD. Less likely pulmonary embolism, cardiac related or malignancy, but still is a possibility. Physical examination and clinical presentation consistent most likely with viral infection with a high risk for bacterial infection, therefore, antibiotics will be prescribed. During the ED course the patient remained stable, no new complaints. Treatment options and clinical impression discussed with the patient who agrees with management. The patient is stable to be treated outpatient and will be discharged home. Some side effects of prescribed medications (headache, rash, nausea, vomiting, diarrhea, interactions with other medications) were reviewed. The patient needs to follow up with the primary care provider in the next 48h. If symptoms persist, worsen or new symptoms develop, then patient should return to the ED immediately. Disclaimer: Inadvertent spelling and grammatical errors are likely due to EHR/dictation software use and do not reflect on the overall quality of patient care. Also, please note that the electronic time recorded on this note does not necessarily reflect the actual time of the patient encounter. Departure Diagnosis: Primary Impression: Cough Condition: Stable Additional Instructions: Muchas joel por [facility] para buckley servicio. Esperamos que en buckley visita a la sophia de emergencia buckley problema medico haya sido solucionado y que se sienta mucho mejor. Para estar seguros que buckley mejoria sigue en proceso, le pedimos el favor de hacer acacia nicole de seguimiento medico con buckley doctor primario en los proximos 2-4 salmeron. Lleve con usted estos documentos y las medicinas recetadas. Si clarissa sintomas empeoran, NO SE ESPERE, por favor regrese a sophia de emergencia INMEDIATAMENTE. En willis que usted no tenga un mdico de atencin primaria: Llame al mdico o clnica comunitaria de referencia que aparece abajo tano las horas de consultorio para hacer acacia nicole para que le vean. CLINICAS: [facility] [phone] [facility] [phone] [facility] [phone] [facility] [phone] [id number] [place] [id number] [phone] [facility] [phone] JESSICA HARDEN MD Mar 04, 2019 18:06
[2019-03-04 18:51] VITALS: PULSE 85; RESP 20
== END | disposition home or self-care (01) ==
LOC: FTE 16:46
DX: R05 Cough (principal); C85.90 Non-Hodgkin lymphoma, unspecified, unspecified site
CPT/HCPCS: 71046; 94664; Z7502; Z7610

== ENCOUNTER 2019-05-01 10:05 | Emergency (ER) | payer OTHER ==
[~2019-05-01] VITALS: Wt 61.3 kg
[~2019-05-01 10:05] MED LIST changes: -ACETAMINOPHEN 325 MG TAB PO ONE; +CEPH-443 PO; -IPRATROPIUM (NEB) 0.5 MG/2.5 ML AMP HHN ONE; -OMEP20CA16 PO; +OMEP20CA17 PO; +TML25OP5 BOTH EYES
[2019-05-01 10:11] VITALS: Wt 61.3 kg
[2019-05-01] MEDS ORDERED: FLUORESCEIN STRIP ONE (11:45)
[2019-05-01] MEDS ORDERED: FLUORESCEIN STRIP BOTH EYES ONE (12:00)
[2019-05-01] MEDS ORDERED: TETRACAINE 0.5% 4 ML OPH BOTH EYES ONE (12:00)
[2019-05-01 13:14] VITALS: BP 128/60; PULSE 76; RESP 20
== END 2019-05-01 13:15 | disposition home or self-care (01) ==
LOC: FTE 10:05
DX: H57.11 Ocular pain, right eye (principal); H60.12 Cellulitis of left external ear; Z85.6 Personal history of leukemia; Z85.72 Personal history of non-Hodgkin lymphomas; Z86.69 Personal history of other diseases of the nervous system and sense organs
CPT/HCPCS: Z7502; Z7610; 99283